=== PATIENT | female | born 1990 | race Two or more races ===

== ENCOUNTER 2017-03-30 10:02 | Emergency (ER) | payer SELFPAY ==
[~2017-03-30] VITALS: Ht 170.2 cm; Wt 63.5 kg
[2017-03-30] MEDS ORDERED: HYDROcodone/APAP 5/325MG 1 TAB TABLET PO ONE (11:45)
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
[2017-03-30 12:48] VITALS: BP 97/70
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
[2017-03-30] MEDS ORDERED: HYDR-2758 PO (13:21)
== END 2017-03-30 13:40 | disposition home or self-care (01) ==
LOC: ER 10:02
DX: M25.552 Pain in left hip (principal); Z88.0 Allergy status to penicillin; Z88.2 Allergy status to sulfonamides; Z88.6 Allergy status to analgesic agent; Z91.040 Latex allergy status; V49.59XA Passenger injured in collision with other motor vehicles in traffic accident, initial encounter; Y93.89 Activity, other specified; Y92.89 Other specified places as the place of occurrence of the external cause; Y99.8 Other external cause status
CPT/HCPCS: 73502; 81025; 99284

== ENCOUNTER 2017-11-07 13:30 | Emergency (ER) | payer SELFPAY ==
[2017-11-07] MEDS ORDERED: LIDOCAINE WITH 8.4% SOD BICARB 3 ML DISP.SYRIN. INJ (14:00)
== END 2017-11-07 13:41 | disposition home or self-care (01) ==
LOC: ER 13:41
DX: H66.93 Otitis media, unspecified, bilateral (principal); Z88.0 Allergy status to penicillin; Z88.2 Allergy status to sulfonamides; Z88.5 Allergy status to narcotic agent; Z91.040 Latex allergy status
CPT/HCPCS: 99283

== ENCOUNTER 2018-04-05 21:41 | Emergency (ER) | payer OTHER ==
[2018-04-05 22:34] LABS: URINE HCG POC HCG NEGATIVE (Negative)
[2018-04-05] MEDS: KETOROLAC 30 MG/ML INJ. IV (22:35)
== END 2018-04-05 22:56 | disposition home or self-care (01) ==
LOC: ER 22:56
DX: M54.41 Lumbago with sciatica, right side (principal); Z88.0 Allergy status to penicillin; Z88.2 Allergy status to sulfonamides; Z88.5 Allergy status to narcotic agent; Z91.040 Latex allergy status
CPT/HCPCS: 81025; 96374; 99284-25; J1885

== ENCOUNTER 2019-02-11 18:56 | Emergency (ER) | payer MEDICAID, OTHER ==
[~2019-02-11] VITALS: Ht 170.2 cm; Wt 69.9 kg
[~2019-02-11 18:56] MED LIST: CYCL5TAB PO; DOXY100T9 PO; HYDR-2761 PO; METH4TAB2 PO; PRED20TA PO
[2019-02-11 19:01] VITALS: BP 117/80
--- NOTE | 2019-02-11 19:21 | PHYS DOC ---
Past Medical History Past Medical History: No Pertinent History Additional Past Medical Histor: staph infection Past Surgical History: No Surgical History Alcohol Use: Occasionally Drug Use: None Adult General Chief Complaint Chief Complaint: KNEE INJURY [facility] HPI Patient is a 29 year old who presents after she fell down 3 steps at 10 PM last night and landed on her knee. She is 14 weeks . States that she is having 6 out of 10 pain on her lateral side of her knee. Denies any other complaints denies any new abdominal pain. She's felt the baby move. Has tried interventions of ice, Epsom salts, and lidocaine on the knee. Interventions have helped some but only minimally. Review of Systems Review of Systems Constitutional: Denies fever or chills [] Eyes: Denies change in visual acuity, redness, or eye pain [] HENT: Denies nasal congestion or sore throat [] Respiratory: Denies cough or shortness of breath [] Cardiovascular: No additional information not addressed in HPI [] GI: Denies abdominal pain, nausea, vomiting, bloody stools or diarrhea [] : Denies dysuria or hematuria [] Musculoskeletal: Denies back pain or joint pain with exception of L knee. Integument: Denies rash or skin lesions [] Neurologic: Denies headache, focal weakness or sensory changes [] Endocrine: Denies polyuria or polydipsia [] Complete systems were reviewed and found to be within normal limits, except as documented in this note. Allergies Allergies Allergies Coded Allergies Type Severity Reaction Last Updated Verified Penicillins Allergy Intermediate 07/05/14 Yes Sulfa (Sulfonamide Antibiotics) Allergy Intermediate Rash 07/05/14 Yes latex Allergy Intermediate Rash 07/05/14 Yes codeine Adverse Reaction Intermediate Severe vomiting. 07/05/14 Yes Physical Exam Physical Exam Constitutional: Well developed, well nourished, no acute distress, non-toxic appearance. [] HENT: Normocephalic, atraumatic, bilateral external ears normal, oropharynx moist, no oral exudates, nose normal. [] Eyes: PERRLA, EOMI, conjunctiva normal, no discharge. [] Neck: Normal range of motion, no tenderness, supple, no stridor. [] Cardiovascular:Heart rate regular rhythm, no murmur [] Lungs & Thorax: Bilateral breath sounds clear to auscultation [] Abdomen: Bowel sounds normal, soft, no tenderness, no masses, no pulsatile masses. [] Skin: Warm, dry, no erythema, no rash. [] Back: No tenderness, no CVA tenderness. [] Extremities: No tenderness with exception of L knee on lateral side, no cyanosis, no clubbing, ROM intact, no edema. [] Neurologic: Alert and oriented X 3, normal motor function, normal sensory function, no focal deficits noted. [] Psychologic: Affect normal, judgement normal, mood normal. [] Current Patient Data Vital Signs Vital Signs Date Time Temp Pulse Resp B/P (MAP) Pulse Ox O2 Delivery O2 Flow Rate FiO2 02/11/19 19:19 98.1 98.1 02/11/19 19:01 102 18 117/80 (92) 100 Room Air Lab Values Laboratory Tests Test 02/11/19 19:22 Urine Collection Type Unknown Urine Color Yellow Urine Clarity Cloudy Urine pH 6.0 Urine Specific [place] 1.025 Urine Protein Negative mg/dL (NEG-TRACE) Urine Glucose (UA) Negative mg/dL (NEG) Urine Ketones (Stick) Negative mg/dL (NEG) Urine Blood Negative (NEG) Urine Nitrite Negative (NEG) Urine Bilirubin Negative (NEG) Urine Urobilinogen Dipstick 0.2 mg/dL (0.2 mg/dL) Urine Leukocyte Esterase Small (NEG) Urine RBC 1-2 /HPF (0-2) Urine WBC 11-20 /HPF (0-4) Urine Squamous Epithelial Cells Many /LPF Urine Bacteria Many /HPF (0-FEW) EKG EKG [] Radiology/Procedures Radiology/Procedures []PATIENT: Slime WheatleyCOUNT: [id number]#: [id number] : 1990 LOCATION: ER AGE: 29 SEX: F EXAM STATUS: REG ER ORD. PHYSICIAN: EVERTON CHAVEZ APRN REASON: Injury, fall from stairs PROCEDURE: KNEE LEFT 3V EXAM: Left knee, 3 views. HISTORY: Fall. COMPARISON: None. FINDINGS: 3 views left knee are obtained. There is no fracture, dislocation or subluxation. There is no joint effusion. There is a benign bone island within the proximal tibial diaphysis. IMPRESSION: No acute osseous finding. Electronically signed by: Patricia Telles MD (02/11/2019 7:48 PM) [facility] Course & Med Decision Making Course & Med Decision Making Pertinent Labs and Imaging studies reviewed. (See chart for details) Will get x-ray, ua, and check heart tones. Xray is negative, UA shows UTI, and heart tones are appropriate (140's). Will d/c home. Dragon Disclaimer Dragon Disclaimer This electronic medical record was generated, in whole or in part, using a voice recognition dictation system. Departure Departure Impression: Primary Impression: Urinary tract infection affecting Additional Impression: Knee pain, acute Disposition: HOME, SELF-CARE Condition: STABLE Referrals: NO PCP (PCP) Patient Instructions: - Urinary Tract Infection Additional Instructions: Please follow up with your primary care doctor and ortho is knee does not improve. You have a UTI. Please take all of antibiotics. Come back to ER if symptoms worsen. Scripts Cephalexin (KEFLEX) 500 Mg Capsule 1 CAP PO BID for 7 Days, #14 CAP Prov: EVERTON CHAVEZ APRN 02/11/19 Problem Qualifiers Additional Impression: Knee pain, acute Laterality: left Qualified Codes: M25.562 - Pain in left knee EVERTON CHAVEZ APRN Feb 11, 2019 19:21
[2019-02-11 19:29] LABS: BILIRUBIN,URINE NEGATIVE (NEG); CLARITY,URINE CLOUDY; COLOR,URINE YELLOW; NITRITE,URINE NEGATIVE (NEG); PROTEIN,URINE NEGATIVE (NEG-TRACE); UROBILINOGEN,URINE 0.2 mg/dL (0.2 mg/dL)
[2019-02-11 19:36] LABS: BACTERIA,URINE MANY /HPF (0-FEW); SQUAMOUS EPITHELIAL CELL,UR MANY /LPF
--- NOTE | 2019-02-11 19:51 | RAD ---
EXAM: Left knee, 3 views. HISTORY: Fall. COMPARISON: None. FINDINGS: 3 views left knee are obtained. There is no fracture, dislocation or subluxation. There is no joint effusion. There is a benign bone island within the proximal tibial diaphysis. IMPRESSION: No acute osseous finding. Electronically signed by: Patricia Telles MD (02/11/2019 7:48 PM) [facility]
[2019-02-11] MEDS ORDERED: CEPH-264 PO (19:59)
== END 2019-02-11 20:50 | disposition home or self-care (01) ==
LOC: ER 18:56
DX: O99.89 Other specified diseases and conditions complicating pregnancy, childbirth and the puerperium (principal); M25.562 Pain in left knee; O23.42 Unspecified infection of urinary tract in pregnancy, second trimester; Z3A.14 14 weeks gestation of pregnancy; Z88.0 Allergy status to penicillin; Z88.2 Allergy status to sulfonamides; Z88.5 Allergy status to narcotic agent; Z91.040 Latex allergy status
CPT/HCPCS: 73562; 81001; 99285-25

== ENCOUNTER 2019-05-04 11:20 | Observation (INO) | payer MEDICAID ==
[~2019-05-04 11:20] MED LIST changes: +CEPH-264 PO
[2019-05-04 12:10] LABS: BILIRUBIN,URINE NEGATIVE (NEG); CLARITY,URINE CLEAR; COLOR,URINE YELLOW; NITRITE,URINE NEGATIVE (NEG); PROTEIN,URINE NEGATIVE (NEG-TRACE); UROBILINOGEN,URINE 0.2 mg/dL (0.2 mg/dL)
[2019-05-04 12:12] LABS: BACTERIA,URINE FEW /HPF (0-FEW); BARBITURATES NEG (NEG); BENZODIAZEPINES NEG (NEG); CANNABINOIDS NEG (NEG); COCAINE NEG (NEG); METHADONE NEG (NEG); OPIATES NEG (NEG); PHENCYCLIDINE NEG (NEG); RBC,URINE 0 /HPF (0-2); SQUAMOUS EPITHELIAL CELL,UR MANY /LPF; WBC,URINE OCC /HPF (0-4)
[2019-05-04 12:15] LABS: AMPHETAMINE/METHAMPHETAMINE NEG (NEG)
== END 2019-05-04 13:00 | disposition home or self-care (01) ==
LOC: 3 SO LND 11:20
PROVIDERS: ADMIT Obstetrics & Gynecology; ATTEND Obstetrics & Gynecology
DX: O26.892 Other specified pregnancy related conditions, second trimester (principal); R19.7 Diarrhea, unspecified; R10.30 Lower abdominal pain, unspecified; Z3A.26 26 weeks gestation of pregnancy
CPT/HCPCS: 80307; 81001; G0378; G0379

== ENCOUNTER 2021-02-11 09:30 | Inpatient (IN) | payer OTHER, MEDICAID ==
[~2021-02-11] VITALS: Ht 170.2 cm; Wt 52.0 kg
[~2021-02-11 09:30] MED LIST changes: +DOXY-96 PO; -DOXY100T9 PO
[2021-02-11 10:04] LABS: BILIRUBIN,URINE NEGATIVE (NEG); CLARITY,URINE CLEAR; NITRITE,URINE NEGATIVE (NEG); PH,URINE 6.5 (<5.0-8.0); PROTEIN,URINE NEGATIVE (NEG-TRACE); UROBILINOGEN,URINE 0.2 mg/dL (0.2 mg/dL)
[2021-02-11 10:10] LABS: COLOR,URINE YELLOW
[2021-02-11 10:11] LABS: BASO # 0.1 x10^3/uL (0.0-0.2); BASO % 1 % (0-3); EOS # 0.3 x10^3/uL (0.0-0.7); EOS % 2 % (0-3); HEMATOCRIT 35.1 % (36.0-47.0); HEMOGLOBIN 11.5 g/dL (12.0-15.5); LYMPH # 1.5 x10^3/uL (1.0-4.8); LYMPH % 11 % (24-48); MEAN CORPUSCULAR HEMOGLOBIN 29 pg (25-35); MEAN CORPUSCULAR HGB CONC 33 g/dL (31-37); MEAN CORPUSCULAR VOLUME 87 fL (79-100); MONO # 0.6 x10^3/uL (0.0-1.1); MONO % 5 % (0-9); NEUT # 10.9 x10^3/uL (1.8-7.7); NEUT % 81 % (31-73); PLATELET COUNT 493 x10^3/uL (140-400); RED BLOOD COUNT 4.04 x10^6/uL (3.50-5.40); RED CELL DISTRIBUTION WIDTH 14.5 % (11.5-14.5); WHITE BLOOD COUNT 13.4 x10^3/uL (4.0-11.0)
[2021-02-11 10:11] LABS: BACTERIA,URINE FEW /HPF (0-FEW); RBC,URINE OCC /HPF (0-2)
[2021-02-11 10:17] LABS: CALCIUM 8.8 mg/dL (8.5-10.1); CREATININE 0.8 mg/dL (0.6-1.0); GFR 82.6; POTASSIUM 3.5 mmol/L (3.5-5.1)
[2021-02-11 10:22] LABS: ALBUMIN/GLOBULIN RATIO 0.6 (1.0-1.7); MAGNESIUM 1.7 mg/dL (1.8-2.4); TOTAL BILIRUBIN 0.3 mg/dL (0.2-1.0); TOTAL PROTEIN 8.1 g/dL (6.4-8.2)
[2021-02-11 10:22] LABS: BARBITURATES NEG (NEG); BENZODIAZEPINES NEG (NEG); CANNABINOIDS NEG (NEG); COCAINE POS (NEG); METHADONE NEG (NEG); OPIATES NEG (NEG); PHENCYCLIDINE NEG (NEG)
[2021-02-11 10:23] LABS: AMPHETAMINE/METHAMPHETAMINE NEG (NEG)
[2021-02-11] MEDS ORDERED: IV NORMAL SALINE 1000ML BAG 1,000 ML IV ONE (10:30)
[2021-02-11] MEDS ORDERED: fentaNYL PF VIAL 100 MCG/2 ML VIAL IVP ONE (10:45)
[2021-02-11] MEDS ORDERED: KETOROLAC 15 MG/ML VIAL. IVP ONE (10:45)
[2021-02-11] MEDS ORDERED: MAGNESIUM SULFATE 1GM 100 ML IV ONE (11:00)
[2021-02-11] MEDS ORDERED: IOHEXOL 240 MG/ML 50ML VIAL. PO ONE (11:30)
[2021-02-11] MEDS ORDERED: CONTRAST GIVEN. MC PRN (11:30)
[2021-02-11] MEDS ORDERED: IOHEXOL 300 MG/ML 100ML VIAL. IV ONE (12:00)
--- NOTE | 2021-02-11 12:40 | RAD ---
CT abdomen pelvis with contrast dated 02/11/2021. No comparison available. CLINICAL INDICATION: Abdominal pain and diarrhea. TECHNIQUE: Contiguous axial imaging the M pelvis performed after the administration of 75 cc Omnipaque 300. One or more of the following individualized dose reduction techniques were utilized for this examinat ion: 1. Automated exposure control 2. Adjustment of the mA and/or kV according to patient size 3. Use of iterative reconstruction technique FINDINGS: Limited images of the lung bases are clear. Heart size within normal limits. No pleural or pericardia l effusion. Liver, spleen, pancreas, adrenal glands unremarkable. The gallbladder is relatively collapsed and not well evaluated. There is a 2 mm calcific stone at the upper pole right kidney. No calcific stone on the left. No ureteral stone or hydronephrosis. There is mild circumferential wall thickening of the ascending colon and transverse colon with mild p ericolonic inflammatory stranding. The appendix is normal in caliber. The small bowel is unremarkable . There are a few borderline enlarged lymph nodes in the ileocolic region. No retroperitoneal adenopa thy. The abdominal aorta is normal in caliber. Images of pelvis show mildly distended urinary bladder. Uterus and adnexa unremarkable. Trace amount of free pelvic fluid. No pelvic adenopathy. Bone windows show no acute finding. IMPRESSION: 1. Mild diffuse colonic wall thickening, nonspecific. Consider infectious or inflammatory colitis. Is chemic causes considered unlikely. 2. Borderline enlarged ileocolic lymph nodes, likely reactive. The appendix is normal in caliber. 3. Right-sided nephrolithiasis, nonobstructive. Electronically signed by: Chinedu Rebolledo MD (02/11/2021 12:38 PM) [id number]
--- NOTE | 2021-02-11 12:47 | PHYS DOC ---
Past Medical History Past Medical History: No Pertinent History, Other Additional Past Medical Histor: staph infection Past Surgical History: No Surgical History Smoking Status: Current Every Day Smoker Alcohol Use: Occasionally Drug Use: None General Adult EDM: Chief Complaint: ABDOMINAL PAIN HPI: HPI: 31-year-old female past medical history tobacco use presents the ED with her biological mother (patient consents to his/her/their knowledge and involvement in pts' medical care), complains of intermittent episodes of diffuse abdominal pain with loose watery diarrhea (occasional bright red blood) since September 2020, s lost 3 dress sizes. Patient reports her mother has history of Crohn's and she is concerned for this. Was seen December 15 at and was prescribed Bentyl -no CT imaging at that time. No associated emesis. Review of Systems: Review of Systems: Constitutional: Denies fever or chills. [] Eyes: Denies change in visual acuity. [] HENT: Denies nasal congestion or sore throat. [] Respiratory: Denies cough or shortness of breath. [] Cardiovascular: Denies chest pain or edema. [] GI: Denies nausea or vomiting : Denies dysuria or vaginal bleeding Musculoskeletal: Denies back pain or joint pain. [] Integument: Denies rash or diaphoresis Neurologic: Denies headache, focal weakness or sensory changes. [] Endocrine: Denies polyuria or polydipsia. [] Lymphatic: Denies swollen glands. [] Psychiatric: Denies depression or anxiety. [] Heart Score: C/O Chest Pain: No Risk Factors: Risk Factors: DM, Current or recent (<one month) smoker, HTN, HLP, family history of CAD, obesity. Risk Scores: Score 0 - 3: 2.5% MACE over next 6 weeks - Discharge Home Score 4 - 6: 20.3% MACE over next 6 weeks - Admit for Clinical Observation Score 7 - 10: 72.7% MACE over next 6 weeks - Early Invasive Strategies Current Medications: Current Medications Medications (Trade) Dose Ordered Sig/[place] Start Time Stop Time Status Last Admin Dose Admin Fentanyl Citrate (Fentanyl 2ml Vial) 75 mcg 1X ONCE 02/11/21 10:45 02/11/21 10:46 DC 02/11/21 11:07 75 MCG Info (CONTRAST GIVEN -- Rx MONITORING) 1 each PRN DAILY PRN 02/11/21 11:30 02/13/21 11:29 Iohexol (Omnipaque 240 Mg/ml) 50 ml 1X ONCE 02/11/21 11:30 02/11/21 11:31 DC 02/11/21 11:30 50 ML Iohexol (Omnipaque 300 Mg/ml) 75 ml 1X ONCE 02/11/21 12:00 02/11/21 12:01 DC 02/11/21 12:23 75 ML Ketorolac Tromethamine (Toradol 15mg Vial) 15 mg 1X ONCE 02/11/21 10:45 02/11/21 10:46 DC 02/11/21 11:08 15 MG Magnesium Sulfate/ Dextrose 100 ml @ 100 mls/hr 1X ONCE 02/11/21 11:00 02/11/21 11:59 DC 02/11/21 11:08 100 MLS/HR Sodium Chloride 1,000 ml @ 1,000 mls/hr 1X ONCE 02/11/21 10:30 02/11/21 11:29 DC 02/11/21 11:08 1,000 MLS/HR Allergies: Allergies: Allergies Coded Allergies Type Severity Reaction Last Updated Verified Penicillins Allergy Intermediate 07/05/14 Yes Sulfa (Sulfonamide Antibiotics) Allergy Intermediate Rash 07/05/14 Yes latex Allergy Intermediate Rash 07/05/14 Yes codeine Adverse Reaction Intermediate Severe vomiting. 07/05/14 Yes Physical Exam: PE: Constitutional: Well developed, well nourished, no acute distress, non-toxic appearance. HENT: Normocephalic, atraumatic, Eyes: EOMI, conjunctiva normal, no discharge. Neck: Normal range of motion, supple, Cardiovascular: S1/2 present, regular rhythm Lungs & Thorax: Speaking in full sentences, bilateral equal chest rise, no tachypnea or increased work of breathing Abdomen: soft, no tenderness, Skin: Warm, dry, no erythema, no rash. [] Back: No tenderness, no CVA tenderness. [] Extremities: No tenderness, no cyanosis, no lower extremity edema Neurologic: Alert and oriented X 3, normal motor function, normal sensory function, no focal deficits noted. [] Psychologic: Affect normal, judgement normal, mood normal. [] Current Patient Data: Labs: Laboratory Tests Test 02/11/21 09:32 02/11/21 09:41 02/11/21 09:55 Urine Collection Type Unknown Urine Color Yellow Urine Clarity Clear Urine pH 6.5 (<5.0-8.0) Urine Specific [place] >=1.030 (1.000-1.030) Urine Protein Negative mg/dL (NEG-TRACE) Urine Glucose (UA) Negative mg/dL (NEG) Urine Ketones (Stick) Negative mg/dL (NEG) Urine Blood Negative (NEG) Urine Nitrite Negative (NEG) Urine Bilirubin Negative (NEG) Urine Urobilinogen Dipstick 0.2 mg/dL (0.2 mg/dL) Urine Leukocyte Esterase Negative (NEG) Urine RBC Occ /HPF (0-2) Urine WBC 1-4 /HPF (0-4) Urine Squamous Epithelial Cells Many /LPF Urine Bacteria Few /HPF (0-FEW) Urine Mucus Marked /LPF Urine Opiates Screen Neg (NEG) Urine Methadone Screen Neg (NEG) Urine Barbiturates Neg (NEG) Urine Phencyclidine Screen Neg (NEG) Urine Amphetamine/Methamphetamine Neg (NEG) Urine Benzodiazepines Screen Neg (NEG) Urine Cocaine Screen Pos (NEG) Urine Cannabinoids Screen Neg (NEG) Urine Ethyl Alcohol Neg (NEG) POC Urine HCG, Qualitative Hcg negative (Negative) White Blood Count 13.4 x10^3/uL (4.0-11.0) H Red Blood Count 4.04 x10^6/uL (3.50-5.40) Hemoglobin 11.5 g/dL (12.0-15.5) L Hematocrit 35.1 % (36.0-47.0) L Mean Corpuscular Volume 87 fL (79-100) Mean Corpuscular Hemoglobin 29 pg (25-35) Mean Corpuscular Hemoglobin Concent 33 g/dL (31-37) Red Cell Distribution Width 14.5 % (11.5-14.5) Platelet Count 493 x10^3/uL (140-400) H Neutrophils (%) (Auto) 81 % (31-73) H Lymphocytes (%) (Auto) 11 % (24-48) L Monocytes (%) (Auto) 5 % (0-9) Eosinophils (%) (Auto) 2 % (0-3) Basophils (%) (Auto) 1 % (0-3) Neutrophils # (Auto) 10.9 x10^3/uL (1.8-7.7) H Lymphocytes # (Auto) 1.5 x10^3/uL (1.0-4.8) Monocytes # (Auto) 0.6 x10^3/uL (0.0-1.1) Eosinophils # (Auto) 0.3 x10^3/uL (0.0-0.7) Basophils # (Auto) 0.1 x10^3/uL (0.0-0.2) Sodium Level 141 mmol/L (136-145) Potassium Level 3.5 mmol/L (3.5-5.1) Chloride Level 102 mmol/L (98-107) Carbon Dioxide Level 28 mmol/L (21-32) Anion Gap 11 (6-14) Blood Urea Nitrogen 7 mg/dL (7-20) Creatinine 0.8 mg/dL (0.6-1.0) Estimated GFR (Cockcroft-Gault) 82.6 BUN/Creatinine Ratio 9 (6-20) Glucose Level 122 mg/dL (70-99) H Calcium Level 8.8 mg/dL (8.5-10.1) Magnesium Level 1.7 mg/dL (1.8-2.4) L Total Bilirubin 0.3 mg/dL (0.2-1.0) Aspartate Amino Transferase (AST) 21 U/L (15-37) Alanine Aminotransferase (ALT) 26 U/L (14-59) Alkaline Phosphatase 117 U/L (46-116) H Total Protein 8.1 g/dL (6.4-8.2) Albumin 3.0 g/dL (3.4-5.0) L Albumin/Globulin Ratio 0.6 (1.0-1.7) L Lipase 75 U/L (73-393) Laboratory Tests 02/11/21 09:55 Laboratory Tests 02/11/21 09:55 Vital Signs: Vital Signs Date Time Temp Pulse Resp B/P (MAP) Pulse Ox O2 Delivery O2 Flow Rate FiO2 02/11/21 11:41 76 16 98/68 (78) 98 Room Air 02/11/21 09:30 98.8 98.8 EKG: EKG: [] Radiology/Procedures: Radiology/Procedures: IMAGING REPORT Signed PATIENT: JOSE ANTONIO KELLY ACCOUNT: [id number] : 1990 LOCATION: ER AGE: 31 SEX: F EXAM STATUS: REG ER ORD. PHYSICIAN: NATALIE PORTILLO DO REASON: abd pain, diarrhea, fh chrons PROCEDURE: CT ABD PELV W/ORAL&IV CONTRAST CT abdomen pelvis with contrast dated 02/11/2021. No comparison available. CLINICAL INDICATION: Abdominal pain and diarrhea. TECHNIQUE: Contiguous axial imaging the M pelvis performed after the administration of 75 cc Omnipaque 300. One or more of the following individualized dose reduction techniques were utilized for this examination: 1. Automated exposure control 2. Adjustment of the mA and/or kV according to patient size 3. Use of iterative reconstruction technique FINDINGS: Limited images of the lung bases are clear. Heart size within normal limits. No pleural or pericardial effusion. Liver, spleen, pancreas, adrenal glands unremarkable. The gallbladder is relatively collapsed and not well evaluated. There is a 2 mm calcific stone at the upper pole right kidney. No calcific stone on the left. No ureteral stone or hydronephrosis. There is mild circumferential wall thickening of the ascending colon and transverse colon with mild pericolonic inflammatory stranding. The appendix is normal in caliber. The small bowel is unremarkable. There are a few borderline enlarged lymph nodes in the ileocolic region. No retroperitoneal adenopathy. The abdominal aorta is normal in caliber. Images of pelvis show mildly distended urinary bladder. Uterus and adnexa unremarkable. Trace amount of free pelvic fluid. No pelvic adenopathy. Bone windows show no acute finding. IMPRESSION: 1. Mild diffuse colonic wall thickening, nonspecific. Consider infectious or inflammatory colitis. Ischemic causes considered unlikely. 2. Borderline enlarged ileocolic lymph nodes, likely reactive. The appendix is normal in caliber. 3. Right-sided nephrolithiasis, nonobstructive. Electronically signed by: Chinedu Rebolledo MD (02/11/2021 12:38 PM) [id number] DICTATED and SIGNED BY: CHINEDU REBOLLEDO MD DATE: 02/11/21 [id number] 0 Course & Med Decision Making: Course & Med Decision Making Pertinent Labs and Imaging studies reviewed. (See chart for details) Concern for infectious vs inflammatory diarrhea, possibly new-onset IBD. I offered inpatient vs outpt management. UDS positive for cocaine. Pt very tearful and in pain. Will admit for abx, bowel rest, IVFs and analgesia. GI consultation placed. Patient stable time admission and agrees with this plan. I have spoken with the patient and/or caregivers. I have explained the patient's condition, diagnosis and treatment plan based on the information avail able to me at this time. I have answered the patient's and/or caregivers questions and answered any concerns. The patient and/or caregivers have as good an understanding of the patient's diagnosis, condition and treatment plan as can be expected at this point. The patient has been stabilized within the capability of the emergency department. The patient will be transported for further care and management or will be moved to an observation or inpatient service. I have communicated with the staff or medical practitioner taking over this patient's care. Eliel Disclaimer: Eliel Disclaimer: This electronic medical record was generated, in whole or in part, using a voice recognition dictation system. Departure Departure Impression: Primary Impression: Infectious colitis Additional Impressions: Hypomagnesemia Cocaine abuse Disposition: ADMITTED INPATIENT Admitting Physician: DANNY (Dr. Viera) Condition: STABLE Referrals: NON,STAFF (PCP) NATALIE PORTILLO DO Feb 11, 2021 12:47
--- NOTE | 2021-02-11 13:30 | PDOC1 ---
History and Physical Date of Admission Date of Admission DATE: 02/11/21 TIME: 13:27 Identification/Chief Complaint Chief Complaint ABDOMINAL PAIN, POOR APPETITE, WEIGHT LOSS, DAILY LOOSE STOOLS X4 X 6 MONTHS History of Present Illness History of Present Illness 31-year-old female presented the ED with her biological mother (patient consents to his/her/their knowledge and involvement in pts' medical care), complains of intermittent episodes of diffuse abdominal pain with 4 daily loose watery diarrhea since September 2020. reports her mother has history of Crohn's seen December 15 at and was prescribed Bentyl and referred for colonoscopy, but this has been rescheduled multiple times CT today concerning for IBD vs infectious etiology, stool cultured, pt npo, GI consulted UDS pos cocaine, pt denies recent use but states boyfriend used to sell cocaine, she admits to last use one year ago PLAN ADMIT NPO / IV FLUIDS /GI CONSULT /Stool enteric pathogens pain control ESR / IBD PANEL Past Medical History Past Medical History Past Medical History Past Medical History: No Pertinent History, Other Additional Past Medical Histor: staph infection Past Surgical History: No Surgical History Smoking Status: Current Every Day Smoker Alcohol Use: Occasionally Drug Use: None mother has history of Crohn's FHX COPD Psych: Addictions Infectious disease: No pertinent hx Renal/: No pertinent hx Endocrine: No pertinent hx Dermatology: No pertinent hx Family History Family History IBD Social History Smoke: <1 pack per day ALCOHOL: occassional Drugs: Cocaine Current Medications Current Medications Current Medications Sodium Chloride 1,000 ml @ 1,000 mls/hr 1X ONCE IV Last administered on 02/11/21at 11:08; Start 02/11/21 at 10:30; Stop 02/11/21 at 11:29; Status DC Magnesium Sulfate/ Dextrose 100 ml @ 100 mls/hr 1X ONCE IV Last administered on 02/11/21at 11:08; Start 02/11/21 at 11:00; Stop 02/11/21 at 11:59; Status DC Ketorolac Tromethamine (Toradol 15mg Vial) 15 mg 1X ONCE IVP Last administered on 02/11/21at 11:08; Start 02/11/21 at 10:45; Stop 02/11/21 at 10:46; Status DC Fentanyl Citrate (Fentanyl 2ml Vial) 75 mcg 1X ONCE IVP Last administered on 02/11/21at 11:07; Start 02/11/21 at 10:45; Stop 02/11/21 at 10:46; Status DC Iohexol (Omnipaque 300 Mg/ml) 75 ml 1X ONCE IV Last administered on 02/11/21at 12:23; Start 02/11/21 at 12:00; Stop 02/11/21 at 12:01; Status DC Iohexol (Omnipaque 240 Mg/ml) 50 ml 1X ONCE PO Last administered on 02/11/21at 11:30; Start 02/11/21 at 11:30; Stop 02/11/21 at 11:31; Status DC Info (CONTRAST GIVEN -- Rx MONITORING) 1 each PRN DAILY PRN MC SEE COMMENTS; Start 02/11/21 at 11:30; Stop 02/13/21 at 11:29 Hydromorphone HCl (Dilaudid) 0.5 mg 1X ONCE IVP ; Start 02/11/21 at 13:30; Stop 02/11/21 at 13:31; Status UNV Ciprofloxacin/ Dextrose 200 ml @ 200 mls/hr 1X ONCE IV ; Start 02/11/21 at 13:30; Stop 02/11/21 at 14:29; Status UNV Metronidazole 100 ml @ 100 mls/hr 1X ONCE IV ; Start 02/11/21 at 13:30; Stop 02/11/21 at 14:29; Status UNV Active Scripts Active Keflex (Cephalexin) 500 Mg Capsule 1 Cap PO BID 7 Days Cyclobenzaprine Hcl 5 Mg Tablet 1 Tab PO QHS Medrol (Methylprednisolone) 4 Mg Tab.ds.pk 1 Pkg PO UD Doxycycline Hyclate 100 Mg Tablet.dr 1 Tab PO BID Prednisone 20 Mg Tablet 2 Tab PO DAILY 5 Days Hydrocodone-Apap 5-325 (Hydrocodone Bit/Acetaminophen) 1 Each Tablet 1 Tab PO PRN Q6HRS PRN Be careful as this medication may cause you to be drowsy or tired. Do not drive on this medication. Allergies Allergies: Coded Allergies: Penicillins (Verified Allergy, Intermediate, 07/05/14) Sulfa (Sulfonamide Antibiotics) (Verified Allergy, Intermediate, Rash, 07/05/14) latex (Verified Allergy, Intermediate, Rash, 07/05/14) codeine (Verified Adverse Reaction, Intermediate, Severe vomiting. , 07/05/14) ROS Review of System 14 PT ROS OTHERWISE NEG General: YES: Fatigue, Appetite; No: Chills, Night Sweats, Malaise, Other PSYCHOLOGICAL ROS: No: Anxiety, Behavioral Disorder, Concentration difficultie, Decreased libido, Depression, Disorientation, Hallucinations, Hostility, Irritablity, Memory difficulties, Mood Swings, Obsessive thoughts, Physical abuse, Sexual abuse, Sleep disturbances, Suicidal ideation, Other Eyes: No Blurry vision, No Decreased vision, No Double vision, No Dry eyes, No Excessive tearing, No Eye Pain, No Itchy Eyes, No Loss of vision, No Photophobia, No Scotomata, No Uses contacts, No Uses glasses, No Other HEENT: No: Heacaches, Visual Changes, Hearing change, Nasal congestion, Nasal discharge, Oral lesions, Sinus pain, Sore Throat, Epistaxis, Sneezing, Snoring, Tinnitus, Vertigo, Vocal changes, Other ALLERGY AND IMMUNOLOGY: YES: Hives; No: Insect Bite Sensitivity, Itchy/Watery Eyes, Nasal Congestion, Post Nasal Drip, Seasonal Allergies, Other Hematological and Lymphatic: No: Bleeding Problems, Blood Clots, Blood Transfusions, Brusing, Night Sweats, Pallor, Swollen Lymph Nodes, Other ENDOCRINE: No: Breast Changes, Galactorrhea, Hair Pattern Changes, Hot Flashes, Malaise/lethargy, Mood Swings, Palpitations, Polydipsia/polyuria, Skin Changes, Temperature Intolerance, Unexpected Weight Changes, Other Breast: No New/Changing Breast Lumps, No Nipple changes, No Nipple discharge, No Other Respiratory: No: Cough, Hemoptysis, Orthopnea, Pleuritic Pain, Shortness of breath, SOB with excertion, Sputum Changes, Stridor, Tachypnea, Wheezing, Other Cardiovascular: No Chest Pain, No Palpitations, No Orthopnea, No Paroxysmal Noc. Dyspnea, No Edema, No Lt Headedness, No Other Gastrointestinal: Yes Abdominal Pain, Yes Diarrhea; No Nausea, No Vomiting, No Constipation, No Melena, No Hematochezia, No Other Genitourinary: No Dysuria, No Frequency, No Incontinence, No Hematuria, No Retention, No Discharge, No Urgency, No Pain, No Flank Pain, No Other, No , No , No , No , No , No , No Musculoskeletal: No Gait Disturbance, No Joint Pain, No Joint Stiffness, No Joint Swelling, No Muscle Pain, No Muscular Weakness, No Pain In:, No Swelling In:, No Other Neurological: No Behavorial Changes, No Bowel/Bladder ControlChng, No Confusion, No Dizziness, No Gait Disturbance, No Headaches, No Impaired Coord/balance, No Memory Loss, No Numbness/Tingling, No Seizures, No Speech Problems, No Tremors, No Visual Changes, No Weakness, No Other Skin: No Dry Skin, No Eczema, No Hair Changes, No Lumps, No Mole Changes, No Mottling, No Nail Changes, No Pruritus, No Rash, No Skin Lesion Changes, No Other, No Acne Physical Exam General: Alert, Oriented X3, Cooperative, No acute distress, mild distress HEENT: Atraumatic, PERRLA, EOMI, Mucous membr. moist/pink Lungs: Normal air movement Heart: S1S2, RRR, no thrills, no rubs, no gallops, no murmurs, no jug vein distention Breasts: Not examined Abdomen: Normal bowel sounds, Soft, No hepatosplenomegaly, No masses, Other (MILD TENDERNESS NO REBOUND) Rectal Exam: not examined PELVIC: Examination not indicated Extremities: No clubbing, No cyanosis, No edema Skin: No significant lesion Neuro: Normal speech, Strength at 5/5 X4 ext, Cranial nerves 3-12 NL Psych/Mental Status: Mental status NL, Mood NL Vitals Vitals Vital Signs Date Time Temp Pulse Resp B/P (MAP) Pulse Ox O2 Delivery O2 Flow Rate FiO2 02/11/21 11:41 76 16 98/68 (78) 98 Room Air 02/11/21 09:30 98.8 98.8 Labs Labs Laboratory Tests Test 02/11/21 09:32 02/11/21 09:41 02/11/21 09:55 Urine Collection Type Unknown Urine Color Yellow Urine Clarity Clear Urine pH 6.5 (<5.0-8.0) Urine Specific [place] >=1.030 (1.000-1.030) Urine Protein Negative mg/dL (NEG-TRACE) Urine Glucose (UA) Negative mg/dL (NEG) Urine Ketones (Stick) Negative mg/dL (NEG) Urine Blood Negative (NEG) Urine Nitrite Negative (NEG) Urine Bilirubin Negative (NEG) Urine Urobilinogen Dipstick 0.2 mg/dL (0.2 mg/dL) Urine Leukocyte Esterase Negative (NEG) Urine RBC Occ /HPF (0-2) Urine WBC 1-4 /HPF (0-4) Urine Squamous Epithelial Cells Many /LPF Urine Bacteria Few /HPF (0-FEW) Urine Mucus Marked /LPF Urine Opiates Screen Neg (NEG) Urine Methadone Screen Neg (NEG) Urine Barbiturates Neg (NEG) Urine Phencyclidine Screen Neg (NEG) Urine Amphetamine/Methamphetamine Neg (NEG) Urine Benzodiazepines Screen Neg (NEG) Urine Cocaine Screen Pos (NEG) Urine Cannabinoids Screen Neg (NEG) Urine Ethyl Alcohol Neg (NEG) Bedside Urine HCG, Qualitative Hcg negative (Negative) White Blood Count 13.4 x10^3/uL (4.0-11.0) Red Blood Count 4.04 x10^6/uL (3.50-5.40) Hemoglobin 11.5 g/dL (12.0-15.5) Hematocrit 35.1 % (36.0-47.0) Mean Corpuscular Volume 87 fL (79-100) Mean Corpuscular Hemoglobin 29 pg (25-35) Mean Corpuscular Hemoglobin Concent 33 g/dL (31-37) Red Cell Distribution Width 14.5 % (11.5-14.5) Platelet Count 493 x10^3/uL (140-400) Neutrophils (%) (Auto) 81 % (31-73) Lymphocytes (%) (Auto) 11 % (24-48) Monocytes (%) (Auto) 5 % (0-9) Eosinophils (%) (Auto) 2 % (0-3) Basophils (%) (Auto) 1 % (0-3) Neutrophils # (Auto) 10.9 x10^3/uL (1.8-7.7) Lymphocytes # (Auto) 1.5 x10^3/uL (1.0-4.8) Monocytes # (Auto) 0.6 x10^3/uL (0.0-1.1) Eosinophils # (Auto) 0.3 x10^3/uL (0.0-0.7) Basophils # (Auto) 0.1 x10^3/uL (0.0-0.2) Sodium Level 141 mmol/L (136-145) Potassium Level 3.5 mmol/L (3.5-5.1) Chloride Level 102 mmol/L (98-107) Carbon Dioxide Level 28 mmol/L (21-32) Anion Gap 11 (6-14) Blood Urea Nitrogen 7 mg/dL (7-20) Creatinine 0.8 mg/dL (0.6-1.0) Estimated GFR (Cockcroft-Gault) 82.6 BUN/Creatinine Ratio 9 (6-20) Glucose Level 122 mg/dL (70-99) Calcium Level 8.8 mg/dL (8.5-10.1) Magnesium Level 1.7 mg/dL (1.8-2.4) Total Bilirubin 0.3 mg/dL (0.2-1.0) Aspartate Amino Transf (AST/SGOT) 21 U/L (15-37) Alanine Aminotransferase (ALT/SGPT) 26 U/L (14-59) Alkaline Phosphatase 117 U/L (46-116) Total Protein 8.1 g/dL (6.4-8.2) Albumin 3.0 g/dL (3.4-5.0) Albumin/Globulin Ratio 0.6 (1.0-1.7) Lipase 75 U/L (73-393) Laboratory Tests Test 02/11/21 09:32 02/11/21 09:41 02/11/21 09:55 Urine Collection Type Unknown Urine Color Yellow Urine Clarity Clear Urine pH 6.5 (<5.0-8.0) Urine Specific [place] >=1.030 (1.000-1.030) Urine Protein Negative mg/dL (NEG-TRACE) Urine Glucose (UA) Negative mg/dL (NEG) Urine Ketones (Stick) Negative mg/dL (NEG) Urine Blood Negative (NEG) Urine Nitrite Negative (NEG) Urine Bilirubin Negative (NEG) Urine Urobilinogen Dipstick 0.2 mg/dL (0.2 mg/dL) Urine Leukocyte Esterase Negative (NEG) Urine RBC Occ /HPF (0-2) Urine WBC 1-4 /HPF (0-4) Urine Squamous Epithelial Cells Many /LPF Urine Bacteria Few /HPF (0-FEW) Urine Mucus Marked /LPF Urine Opiates Screen Neg (NEG) Urine Methadone Screen Neg (NEG) Urine Barbiturates Neg (NEG) Urine Phencyclidine Screen Neg (NEG) Urine Amphetamine/Methamphetamine Neg (NEG) Urine Benzodiazepines Screen Neg (NEG) Urine Cocaine Screen Pos (NEG) Urine Cannabinoids Screen Neg (NEG) Urine Ethyl Alcohol Neg (NEG) Bedside Urine HCG, Qualitative Hcg negative (Negative) White Blood Count 13.4 x10^3/uL (4.0-11.0) Red Blood Count 4.04 x10^6/uL (3.50-5.40) Hemoglobin 11.5 g/dL (12.0-15.5) Hematocrit 35.1 % (36.0-47.0) Mean Corpuscular Volume 87 fL (79-100) Mean Corpuscular Hemoglobin 29 pg (25-35) Mean Corpuscular Hemoglobin Concent 33 g/dL (31-37) Red Cell Distribution Width 14.5 % (11.5-14.5) Platelet Count 493 x10^3/uL (140-400) Neutrophils (%) (Auto) 81 % (31-73) Lymphocytes (%) (Auto) 11 % (24-48) Monocytes (%) (Auto) 5 % (0-9) Eosinophils (%) (Auto) 2 % (0-3) Basophils (%) (Auto) 1 % (0-3) Neutrophils # (Auto) 10.9 x10^3/uL (1.8-7.7) Lymphocytes # (Auto) 1.5 x10^3/uL (1.0-4.8) Monocytes # (Auto) 0.6 x10^3/uL (0.0-1.1) Eosinophils # (Auto) 0.3 x10^3/uL (0.0-0.7) Basophils # (Auto) 0.1 x10^3/uL (0.0-0.2) Sodium Level 141 mmol/L (136-145) Potassium Level 3.5 mmol/L (3.5-5.1) Chloride Level 102 mmol/L (98-107) Carbon Dioxide Level 28 mmol/L (21-32) Anion Gap 11 (6-14) Blood Urea Nitrogen 7 mg/dL (7-20) Creatinine 0.8 mg/dL (0.6-1.0) Estimated GFR (Cockcroft-Gault) 82.6 BUN/Creatinine Ratio 9 (6-20) Glucose Level 122 mg/dL (70-99) Calcium Level 8.8 mg/dL (8.5-10.1) Magnesium Level 1.7 mg/dL (1.8-2.4) Total Bilirubin 0.3 mg/dL (0.2-1.0) Aspartate Amino Transf (AST/SGOT) 21 U/L (15-37) Alanine Aminotransferase (ALT/SGPT) 26 U/L (14-59) Alkaline Phosphatase 117 U/L (46-116) Total Protein 8.1 g/dL (6.4-8.2) Albumin 3.0 g/dL (3.4-5.0) Albumin/Globulin Ratio 0.6 (1.0-1.7) Lipase 75 U/L (73-393) Images Images No comparison available. CLINICAL INDICATION: Abdominal pain and diarrhea. TECHNIQUE: Contiguous axial imaging the M pelvis performed after the administration of 75 cc Omnipaque 300. One or more of the following individualized dose reduction techniques were utilized for this examination: 1. Automated exposure control 2. Adjustment of the mA and/or kV according to patient size 3. Use of iterative reconstruction technique FINDINGS: Limited images of the lung bases are clear. Heart size within normal limits. No pleural or pericardial effusion. Liver, spleen, pancreas, adrenal glands unremarkable. The gallbladder is relatively collapsed and not well evaluated. There is a 2 mm calcific stone at the upper pole right kidney. No calcific stone on the left. No ureteral stone or hydronephrosis. There is mild circumferential wall thickening of the ascending colon and transverse colon with mild pericolonic inflammatory stranding. The appendix is normal in caliber. The small bowel is unremarkable. There are a few borderline enlarged lymph nodes in the ileocolic region. No retroperitoneal adenopathy. The abdominal aorta is normal in caliber. Images of pelvis show mildly distended urinary bladder. Uterus and adnexa unremarkable. Trace amount of free pelvic fluid. No pelvic adenopathy. Bone windows show no acute finding. IMPRESSION: 1. Mild diffuse colonic wall thickening, nonspecific. Consider infectious or inflammatory colitis. Ischemic causes considered unlikely. 2. Borderline enlarged ileocolic lymph nodes, likely reactive. The appendix is normal in caliber. 3. Right-sided nephrolithiasis, nonobstructive. Electronically signed by: Everton Rebolledo MD (02/11/2021 12:38 PM) [id number] DICTATED and SIGNED BY: EVERTON REBOLLEDO MD DATE: 02/11/21 [id number] VTE Prophylaxis Ordered VTE Prophylaxis Devices: Yes VTE Pharmacological Prophylaxi: Yes Assessment/Plan Assessment/Plan IMPRESSION: Acute abdominal pain, intractable without rectal bleeding, but characterized by frequent diarrhea and marked weight loss ACUTE diffuse colonic wall thickening, nonspecific. infectious or inflammatory colitis. Ischemic /unlikely. BY CT 02-11 Borderline enlarged ileocolic lymph nodes, reactive.appendix normal in caliber. Right-sided nephrolithiasis, nonobstructive. positive UDS Cocaine / states boyfriend used to sell cocaine, she admits to last use one year ago Leukocytosis Abnormal WEIGHT LOSS Hypomagnesemia plan ADMIT NPO IV FLUIDS GI CONSULT Stool enteric pathogens pain control ESR IBD PANEL DVT PROPHYLAXIS Stool fecal leukocytes replace mg iv D/W ER DR Justifications for Admission Other Justification CHIO HAZEL MD Feb 11, 2021 13:30
[2021-02-11] MEDS ORDERED: HYDROmorphone 2 MG/ML VIAL IVP ONE (13:45)
[2021-02-11] MEDS ORDERED: ONDANSETRON PF 4 MG/2 ML VIAL. IV PRN (14:00)
[2021-02-11] MEDS ORDERED: ALBUTEROL SULFATE 2.5 MG/3 ML NEBU. NEB PRN (14:00)
[2021-02-11] MEDS ORDERED: diphenhydrAMINE 50 MG/ML VIAL IVP PRN (14:00)
[2021-02-11] MEDS ORDERED: ACETAMINOPHEN 325 MG TABLET. PO PRN (14:00)
[2021-02-11] MEDS ORDERED: guaiFENesin ORAL 200 MG/10 ML LIQUID. PO PRN (14:00)
[2021-02-11] MEDS ORDERED: cloNIDine HCL 0.1 MG TABLET PO PRN (14:00)
[2021-02-11] MEDS ORDERED: ACETAMINOPHEN 650 MG SUPP.RECT. PR PRN (14:00)
[2021-02-11] MEDS ORDERED: CIPROFLOXACIN 400MG PREMIX 200 ML IV ONE (14:00)
[2021-02-11] MEDS ORDERED: 0.9 % SODIUM CHLORIDE 10 ML DISP.SYRIN. IV PRN (14:00)
[2021-02-11 14:30] VITALS: BP 113/72
--- NOTE | 2021-02-11 15:36 | PDOC2 ---
CONSULT Date of Consult Date of Consult DATE: 02/11/21 TIME: 15:31 Reason for Consult Reason for Consult: Abdominal pain, diarrhea, questionable colitis on CT, abnormal labs History of Present Illness Reason for Visit: This is a 31-year-old female who describes for the last 5 months worsening diarrhea symptoms with crampy abdominal pain after eating. Most of her diarrhea is after meals but she will have diarrhea other times as well. She denies any obvious bleeding in her stools. She was given some dicyclomine in the outp atient setting by her primary care physician at [facility] but has not had any other treatment. She apparently has been seen there and is awaiting further work-up but has not had an EGD or colonoscopy or other testing. She thinks a stool test was done to look for blood which apparently showed a small amount of blood but she did not see the blood. She has had intermittent diarrhea in the past but was never persistent. She denies any obvious triggers that might of started this back in September. No new medications, no exposure to antibiotics. She is concerned because her mother and other family members have a history of colitis or Crohn's disease. Past Medical History Psych: Addictions Infectious disease: No pertinent hx Renal/: No pertinent hx Endocrine: No pertinent hx Dermatology: No pertinent hx Social History <1 pack per day ALCOHOL: occassional Drugs: Cocaine Current Problem List Problem List Problems Medical Problems: (1) Cocaine abuse Status: Acute (2) Hypomagnesemia Status: Acute (3) Infectious colitis Status: Acute Current Medications Current Medications Current Medications Sodium Chloride 1,000 ml @ 1,000 mls/hr 1X ONCE IV Last administered on 02/11/21at 11:08; Start 02/11/21 at 10:30; Stop 02/11/21 at 11:29; Status DC Magnesium Sulfate/ Dextrose 100 ml @ 100 mls/hr 1X ONCE IV Last administered on 02/11/21at 11:08; Start 02/11/21 at 11:00; Stop 02/11/21 at 11:59; Status DC Ketorolac Tromethamine (Toradol 15mg Vial) 15 mg 1X ONCE IVP Last administered on 02/11/21at 11:08; Start 02/11/21 at 10:45; Stop 02/11/21 at 10:46; Status DC Fentanyl Citrate (Fentanyl 2ml Vial) 75 mcg 1X ONCE IVP Last administered on 02/11/21at 11:07; Start 02/11/21 at 10:45; Stop 02/11/21 at 10:46; Status DC Iohexol (Omnipaque 300 Mg/ml) 75 ml 1X ONCE IV Last administered on 02/11/21at 12:23; Start 02/11/21 at 12:00; Stop 02/11/21 at 12:01; Status DC Iohexol (Omnipaque 240 Mg/ml) 50 ml 1X ONCE PO Last administered on 02/11/21at 11:30; Start 02/11/21 at 11:30; Stop 02/11/21 at 11:31; Status DC Info (CONTRAST GIVEN -- Rx MONITORING) 1 each PRN DAILY PRN MC SEE COMMENTS; Start 02/11/21 at 11:30; Stop 02/13/21 at 11:29 Hydromorphone HCl (Dilaudid) 0.5 mg 1X ONCE IVP Last administered on 02/11/21at 13:48; Start 02/11/21 at 13:45; Stop 02/11/21 at 13:46; Status DC Ciprofloxacin/ Dextrose 200 ml @ 200 mls/hr 1X ONCE IV Last administered on 02/11/21at 13:47; Start 02/11/21 at 14:00; Stop 02/11/21 at 14:59; Status DC Metronidazole 100 ml @ 100 mls/hr 1X ONCE IV ; Start 02/11/21 at 13:30; Stop 02/11/21 at 14:29; Status DC Sodium Chloride (Normal Saline Flush) 3 ml QSHIFT PRN IV AFTER MEDS AND BLOOD DRAWS; Start 02/11/21 at 14:00 Sodium Chloride 1,000 ml @ 150 mls/hr Q6H40M IV ; Start 02/11/21 at 15:00 Ondansetron HCl (Zofran) 4 mg PRN Q4HRS PRN IV NAUSEA/VOMITING; Start 02/11/21 at 14:00 Acetaminophen (Tylenol) 650 mg PRN Q4HRS PRN PO TEMP OVER 100.4F OR MILD PAIN; Start 02/11/21 at 14:00 Acetaminophen (Tylenol Supp) 650 mg PRN Q4HRS PRN [place] TEMP OVER 100.4F OR MILD PAIN; Start 02/11/21 at 14:00 Clonidine HCl (Catapres) 0.1 mg PRN Q6HRS PRN PO SBP>160 OR DBP>90; Start 02/11/21 at 14:00 Diphenhydramine HCl (Benadryl) 25 mg PRN Q4HRS PRN IVP ITCHING; Start 02/11/21 at 14:00 Albuterol Sulfate (Ventolin Neb Soln) 2.5 mg PRN Q4HRS PRN NEB SHORTNESS OF BREATH; Start 02/11/21 at 14:00 Guaifenesin (Robitussin) 200 mg PRN Q4HRS PRN PO COUGH; Start 02/11/21 at 14:00 Lorazepam (Ativan) 0.5 mg PRN Q4HRS PRN PO ANXIETY / AGITATION; Start 02/11/21 at 14:00 Enoxaparin Sodium (Lovenox 40mg Syringe) 40 mg Q24H SQ ; Start 02/11/21 at 16:00 Metronidazole 100 ml @ 100 mls/hr Q8HRS IV ; Start 02/11/21 at 22:00 Hydromorphone HCl (Dilaudid) 0.5 mg PRN Q3HRS PRN IVP SEVERE PAIN 7-10; Start 02/11/21 at 14:15 Active Scripts Active Keflex (Cephalexin) 500 Mg Capsule 1 Cap PO BID 7 Days Cyclobenzaprine Hcl 5 Mg Tablet 1 Tab PO QHS Medrol (Methylprednisolone) 4 Mg Tab.ds.pk 1 Pkg PO UD Doxycycline Hyclate 100 Mg Tablet.dr 1 Tab PO BID Prednisone 20 Mg Tablet 2 Tab PO DAILY 5 Days Hydrocodone-Apap 5-325 (Hydrocodone Bit/Acetaminophen) 1 Each Tablet 1 Tab PO PRN Q6HRS PRN Be careful as this medication may cause you to be drowsy or tired. Do not drive on this medication. Allergies Allergies: Coded Allergies: Penicillins (Verified Allergy, Intermediate, 07/05/14) Sulfa (Sulfonamide Antibiotics) (Verified Allergy, Intermediate, Rash, 07/05/14) latex (Verified Allergy, Intermediate, Rash, 07/05/14) codeine (Verified Adverse Reaction, Intermediate, Severe vomiting. , 07/05/14) Physical Exam General: Alert, Oriented X3, Other (Tearful) HEENT: Atraumatic Lungs: Clear to auscultation Heart: Regular rate, Normal S1, Normal S2 Abdomen: Normal bowel sounds, Soft, No hepatosplenomegaly, No masses Extremities: No cyanosis Neuro: Normal speech Psych/Mental Status: Mental status NL Vitals VITALS Vital Signs Date Time Temp Pulse Resp B/P (MAP) Pulse Ox O2 Delivery O2 Flow Rate FiO2 02/11/21 13:48 16 98 Room Air 02/11/21 13:25 79 107/72 (84) 02/11/21 09:30 98.8 98.8 Labs Labs Laboratory Tests Test 02/11/21 09:32 02/11/21 09:41 02/11/21 09:55 Urine Collection Type Unknown Urine Color Yellow Urine Clarity Clear Urine pH 6.5 (<5.0-8.0) Urine Specific [place] >=1.030 (1.000-1.030) Urine Protein Negative mg/dL (NEG-TRACE) Urine Glucose (UA) Negative mg/dL (NEG) Urine Ketones (Stick) Negative mg/dL (NEG) Urine Blood Negative (NEG) Urine Nitrite Negative (NEG) Urine Bilirubin Negative (NEG) Urine Urobilinogen Dipstick 0.2 mg/dL (0.2 mg/dL) Urine Leukocyte Esterase Negative (NEG) Urine RBC Occ /HPF (0-2) Urine WBC 1-4 /HPF (0-4) Urine Squamous Epithelial Cells Many /LPF Urine Bacteria Few /HPF (0-FEW) Urine Mucus Marked /LPF Urine Opiates Screen Neg (NEG) Urine Methadone Screen Neg (NEG) Urine Barbiturates Neg (NEG) Urine Phencyclidine Screen Neg (NEG) Urine Amphetamine/Methamphetamine Neg (NEG) Urine Benzodiazepines Screen Neg (NEG) Urine Cocaine Screen Pos (NEG) Urine Cannabinoids Screen Neg (NEG) Urine Ethyl Alcohol Neg (NEG) Bedside Urine HCG, Qualitative Hcg negative (Negative) White Blood Count 13.4 x10^3/uL (4.0-11.0) Red Blood Count 4.04 x10^6/uL (3.50-5.40) Hemoglobin 11.5 g/dL (12.0-15.5) Hematocrit 35.1 % (36.0-47.0) Mean Corpuscular Volume 87 fL (79-100) Mean Corpuscular Hemoglobin 29 pg (25-35) Mean Corpuscular Hemoglobin Concent 33 g/dL (31-37) Red Cell Distribution Width 14.5 % (11.5-14.5) Platelet Count 493 x10^3/uL (140-400) Neutrophils (%) (Auto) 81 % (31-73) Lymphocytes (%) (Auto) 11 % (24-48) Monocytes (%) (Auto) 5 % (0-9) Eosinophils (%) (Auto) 2 % (0-3) Basophils (%) (Auto) 1 % (0-3) Neutrophils # (Auto) 10.9 x10^3/uL (1.8-7.7) Lymphocytes # (Auto) 1.5 x10^3/uL (1.0-4.8) Monocytes # (Auto) 0.6 x10^3/uL (0.0-1.1) Eosinophils # (Auto) 0.3 x10^3/uL (0.0-0.7) Basophils # (Auto) 0.1 x10^3/uL (0.0-0.2) Erythrocyte Sedimentation Rate 65 (0-25) Sodium Level 141 mmol/L (136-145) Potassium Level 3.5 mmol/L (3.5-5.1) Chloride Level 102 mmol/L (98-107) Carbon Dioxide Level 28 mmol/L (21-32) Anion Gap 11 (6-14) Blood Urea Nitrogen 7 mg/dL (7-20) Creatinine 0.8 mg/dL (0.6-1.0) Estimated GFR (Cockcroft-Gault) 82.6 BUN/Creatinine Ratio 9 (6-20) Glucose Level 122 mg/dL (70-99) Calcium Level 8.8 mg/dL (8.5-10.1) Magnesium Level 1.7 mg/dL (1.8-2.4) Total Bilirubin 0.3 mg/dL (0.2-1.0) Aspartate Amino Transf (AST/SGOT) 21 U/L (15-37) Alanine Aminotransferase (ALT/SGPT) 26 U/L (14-59) Alkaline Phosphatase 117 U/L (46-116) C-Reactive Protein, Quantitative 56.8 mg/L (0-3.3) Total Protein 8.1 g/dL (6.4-8.2) Albumin 3.0 g/dL (3.4-5.0) Albumin/Globulin Ratio 0.6 (1.0-1.7) Lipase 75 U/L (73-393) Laboratory Tests Test 02/11/21 09:32 02/11/21 09:41 02/11/21 09:55 Urine Collection Type Unknown Urine Color Yellow Urine Clarity Clear Urine pH 6.5 (<5.0-8.0) Urine Specific [place] >=1.030 (1.000-1.030) Urine Protein Negative mg/dL (NEG-TRACE) Urine Glucose (UA) Negative mg/dL (NEG) Urine Ketones (Stick) Negative mg/dL (NEG) Urine Blood Negative (NEG) Urine Nitrite Negative (NEG) Urine Bilirubin Negative (NEG) Urine Urobilinogen Dipstick 0.2 mg/dL (0.2 mg/dL) Urine Leukocyte Esterase Negative (NEG) Urine RBC Occ /HPF (0-2) Urine WBC 1-4 /HPF (0-4) Urine Squamous Epithelial Cells Many /LPF Urine Bacteria Few /HPF (0-FEW) Urine Mucus Marked /LPF Urine Opiates Screen Neg (NEG) Urine Methadone Screen Neg (NEG) Urine Barbiturates Neg (NEG) Urine Phencyclidine Screen Neg (NEG) Urine Amphetamine/Methamphetamine Neg (NEG) Urine Benzodiazepines Screen Neg (NEG) Urine Cocaine Screen Pos (NEG) Urine Cannabinoids Screen Neg (NEG) Urine Ethyl Alcohol Neg (NEG) Bedside Urine HCG, Qualitative Hcg negative (Negative) White Blood Count 13.4 x10^3/uL (4.0-11.0) Red Blood Count 4.04 x10^6/uL (3.50-5.40) Hemoglobin 11.5 g/dL (12.0-15.5) Hematocrit 35.1 % (36.0-47.0) Mean Corpuscular Volume 87 fL (79-100) Mean Corpuscular Hemoglobin 29 pg (25-35) Mean Corpuscular Hemoglobin Concent 33 g/dL (31-37) Red Cell Distribution Width 14.5 % (11.5-14.5) Platelet Count 493 x10^3/uL (140-400) Neutrophils (%) (Auto) 81 % (31-73) Lymphocytes (%) (Auto) 11 % (24-48) Monocytes (%) (Auto) 5 % (0-9) Eosinophils (%) (Auto) 2 % (0-3) Basophils (%) (Auto) 1 % (0-3) Neutrophils # (Auto) 10.9 x10^3/uL (1.8-7.7) Lymphocytes # (Auto) 1.5 x10^3/uL (1.0-4.8) Monocytes # (Auto) 0.6 x10^3/uL (0.0-1.1) Eosinophils # (Auto) 0.3 x10^3/uL (0.0-0.7) Basophils # (Auto) 0.1 x10^3/uL (0.0-0.2) Erythrocyte Sedimentation Rate 65 (0-25) Sodium Level 141 mmol/L (136-145) Potassium Level 3.5 mmol/L (3.5-5.1) Chloride Level 102 mmol/L (98-107) Carbon Dioxide Level 28 mmol/L (21-32) Anion Gap 11 (6-14) Blood Urea Nitrogen 7 mg/dL (7-20) Creatinine 0.8 mg/dL (0.6-1.0) Estimated GFR (Cockcroft-Gault) 82.6 BUN/Creatinine Ratio 9 (6-20) Glucose Level 122 mg/dL (70-99) Calcium Level 8.8 mg/dL (8.5-10.1) Magnesium Level 1.7 mg/dL (1.8-2.4) Total Bilirubin 0.3 mg/dL (0.2-1.0) Aspartate Amino Transf (AST/SGOT) 21 U/L (15-37) Alanine Aminotransferase (ALT/SGPT) 26 U/L (14-59) Alkaline Phosphatase 117 U/L (46-116) C-Reactive Protein, Quantitative 56.8 mg/L (0-3.3) Total Protein 8.1 g/dL (6.4-8.2) Albumin 3.0 g/dL (3.4-5.0) Albumin/Globulin Ratio 0.6 (1.0-1.7) Lipase 75 U/L (73-393) Images Images CT FINDINGS: Limited images of the lung bases are clear. Heart size within normal limits. No pleural or pericardial effusion. Liver, spleen, pancreas, adrenal glands unremarkable. The gallbladder is relatively collapsed and not well evaluated. There is a 2 mm calcific stone at the upper pole right kidney. No calcific stone on the left. No ureteral stone or hydronephrosis. There is mild circumferential wall thickening of the ascending colon and transverse colon with mild pericolonic inflammatory stranding. The appendix is normal in caliber. The small bowel is unremarkable. There are a few borderline enlarged lymph nodes in the ileocolic region. No retroperitoneal adenopathy. The abdominal aorta is normal in caliber. Images of pelvis show mildly distended urinary bladder. Uterus and adnexa unremarkable. Trace amount of free pelvic fluid. No pelvic adenopathy. Bone windows show no acute finding. IMPRESSION: 1. Mild diffuse colonic wall thickening, nonspecific. Consider infectious or inflammatory colitis. Ischemic causes considered unlikely. 2. Borderline enlarged ileocolic lymph nodes, likely reactive. The appendix is normal in caliber. 3. Right-sided nephrolithiasis, nonobstructive. Assessment/Plan Assessment/Plan 5 months of diarrhea with abdominal cramping after eating. These are nonspecific findings but the CT scan does suggest the possibility of mild colitis although CT scans in general can be misleading in that regard. The labs however are somewhat concerning. She has a slightly elevated white count and more significantly has an elevated sed rate and C-reactive protein. These are suspicious for underlying inflammatory bowel disease as a potential cause for these complaints. Certainly an infectious cause should be excluded but seems less likely with the chronic nature of her symptoms. Plan: Check stool studies for infection and white cells Start empirically on prednisone Continue dicyclomine therapy Plan : elective EGD and colonoscopy to evaluate for gastritis, celiac disease, inflammatory bowel disease etc.- These will be more likely done in the outpatient setting if we can get her symptoms under control. LUIS VERDUGO MD Feb 11, 2021 15:36
[2021-02-11] MEDS ORDERED: DICYCLOMINE HCL 10 MG CAPSULE PO PRN (15:45)
[2021-02-11] MEDS ORDERED: methylPREDNISolone SOD SUCC PF 40 MG/ML VIAL. IV ONE (15:45)
[2021-02-11] MEDS ORDERED: ERGO500089 PO (15:52)
[2021-02-11] MEDS ORDERED: DICY10CA3 PO (15:52)
[2021-02-11] MEDS ORDERED: FERR325T14 PO (15:52)
[2021-02-11] MEDS ORDERED: IOHEXOL 240 MG/ML 50ML VIAL. ONE (16:30)
[2021-02-11] MEDS: ENOXAPARIN 40 MG/0.4 ML SYRINGE. SQ SCH (16:48)
[2021-02-11] MEDS: HYDROmorphone 2 MG/ML VIAL IVP PRN ×2 (16:56→20:50)
[2021-02-11] MEDS: IV NORMAL SALINE 1000ML BAG 1,000 ML IV SCH ×2 (16:57→22:41)
[2021-02-11 19:25] VITALS: BP 112/71
[2021-02-11] MEDS: LORazepam 0.5 MG TABLET PO PRN (20:49)
[2021-02-11 23:28] VITALS: BP 99/67
[2021-02-12] MEDS: HYDROmorphone 2 MG/ML VIAL IVP PRN ×5 (02:44→20:22)
[2021-02-12 02:56] VITALS: BP 109/68
[2021-02-12] MEDS: IV NORMAL SALINE 1000ML BAG 1,000 ML IV SCH ×2 (05:53→11:00)
[2021-02-12 06:46] LABS: BASO % 0 % (0-3); EOS % 0 % (0-3); HEMATOCRIT 29.6 % (36.0-47.0); HEMOGLOBIN 9.6 g/dL (12.0-15.5); LYMPH # 0.7 x10^3/uL (1.0-4.8); LYMPH % 7 % (24-48); MEAN CORPUSCULAR HEMOGLOBIN 28 pg (25-35); MEAN CORPUSCULAR HGB CONC 33 g/dL (31-37); MEAN CORPUSCULAR VOLUME 88 fL (79-100); MONO # 0.5 x10^3/uL (0.0-1.1); MONO % 4 % (0-9); NEUT # 9.8 x10^3/uL (1.8-7.7); NEUT % 89 % (31-73); PLATELET COUNT 354 x10^3/uL (140-400); RED BLOOD COUNT 3.38 x10^6/uL (3.50-5.40); RED CELL DISTRIBUTION WIDTH 14.3 % (11.5-14.5)
[2021-02-12 07:02] VITALS: BP 142/105
[2021-02-12 07:16] LABS: ALBUMIN 2.4 g/dL (3.4-5.0); ALBUMIN/GLOBULIN RATIO 0.6 (1.0-1.7); CALCIUM 8.3 mg/dL (8.5-10.1); CREATININE 0.7 mg/dL (0.6-1.0); GFR 96.4; POTASSIUM 4.1 mmol/L (3.5-5.1); TOTAL BILIRUBIN 0.3 mg/dL (0.2-1.0); TOTAL PROTEIN 6.7 g/dL (6.4-8.2)
[2021-02-12] MEDS: predniSONE 20 MG TABLET PO SCH (08:23)
--- NOTE | 2021-02-12 10:34 | NUR ---
SW following. Discussed with RN, pt from home with family, room air, NPO. GI following. Pt positive for Cocaine - awaiting confirmation from Dr. Camejo if he would like the patient to be seen by the PAT team. RN advised no other SW needs at this time. SW will continue to follow.
[2021-02-12 10:38] VITALS: BP 110/78
[2021-02-12 11:13] LABS: % BANDS 1 % (0-9); % LYMPHS 7 % (24-48); % MONOS 1 % (0-10); % SEGS 91 % (35-66)
[2021-02-12 11:14] LABS: PLT ESTIMATE ADEQUATE (ADEQUATE)
--- NOTE | 2021-02-12 12:47 | PDOC ---
[employer] PROGRESS NOTE Date of Service DOS: DATE: 02/12/21 TIME: 12:18 Chief Complaint Chief Complaint Acute abdominal pain, intractable without rectal bleeding, but characterized by frequent diarrhea and marked weight loss ACUTE diffuse colonic wall thickening, nonspecific. infectious or inflammatory colitis. Ischemic /unlikely. BY CT 02-11 Borderline enlarged ileocolic lymph nodes, reactive.appendix normal in caliber. Right-sided nephrolithiasis, nonobstructive. positive UDS Cocaine / states boyfriend used to sell cocaine, she admits to last use one year ago Leukocytosis Abnormal WEIGHT LOSS Hypomagnesemia plan ADMIT NPO IV FLUIDS GI CONSULT Stool enteric pathogens pain control ESR IBD PANEL DVT PROPHYLAXIS Stool fecal leukocytes replace mg iv History of Present Illness History of Present Illness Ms Wheatley is a 31-year-old female presented the ED with her biological mother (patient consents to his/her/their knowledge and involvement in pts' medical care), complains of intermittent episodes of diffuse abdominal pain with 4 daily loose watery diarrhea since September 2020. reports her mother has history of Crohn's seen December 15 at and was prescribed Bentyl and referred for colonoscopy, but this has been rescheduled multiple times CT 02/11/21 concerning for IBD vs infectious etiology, stool cultured, pt npo, GI consulted UDS pos cocaine, pt denies recent use but states boyfriend used to sell cocaine, she admits to last use one year ago She still having some pain on bowel movements and crampy. No rectal pain. Afebrile. Pain is improved from admission. She also has nausea and is scared to eat. Stool sample sent to lab is pending results currently. Vitals/I&O Vitals/I&O: Vital Signs Date Time Temp Pulse Resp B/P (MAP) Pulse Ox O2 Delivery O2 Flow Rate FiO2 02/12/21 10:51 Room Air 02/12/21 10:38 98.0 94 18 110/78 (89) 99 98.0 I & O 02/11/21 02/11/21 02/12/21 15:00 23:00 07:00 Intake Total 1100 ml Balance 1100 ml Physical Exam General: Alert, Oriented X3, Other (Tearful) Heart: Regular rate, Normal S1, Normal S2 Abdomen: Normal bowel sounds, Soft, No hepatosplenomegaly, No masses Extremities: No cyanosis Skin: No significant lesion Labs Labs: Laboratory Tests Test 02/12/21 06:00 White Blood Count 11.0 x10^3/uL (4.0-11.0) Red Blood Count 3.38 x10^6/uL (3.50-5.40) Hemoglobin 9.6 g/dL (12.0-15.5) Hematocrit 29.6 % (36.0-47.0) Mean Corpuscular Volume 88 fL (79-100) Mean Corpuscular Hemoglobin 28 pg (25-35) Mean Corpuscular Hemoglobin Concent 33 g/dL (31-37) Red Cell Distribution Width 14.3 % (11.5-14.5) Platelet Count 354 x10^3/uL (140-400) Neutrophils (%) (Auto) 89 % (31-73) Lymphocytes (%) (Auto) 7 % (24-48) Monocytes (%) (Auto) 4 % (0-9) Eosinophils (%) (Auto) 0 % (0-3) Basophils (%) (Auto) 0 % (0-3) Neutrophils # (Auto) 9.8 x10^3/uL (1.8-7.7) Lymphocytes # (Auto) 0.7 x10^3/uL (1.0-4.8) Monocytes # (Auto) 0.5 x10^3/uL (0.0-1.1) Eosinophils # (Auto) 0.0 x10^3/uL (0.0-0.7) Basophils # (Auto) 0.0 x10^3/uL (0.0-0.2) Segmented Neutrophils % 91 % (35-66) Band Neutrophils % 1 % (0-9) Lymphocytes % 7 % (24-48) Monocytes % 1 % (0-10) Platelet Estimate Adequate (ADEQUATE) Sodium Level 141 mmol/L (136-145) Potassium Level 4.1 mmol/L (3.5-5.1) Chloride Level 107 mmol/L (98-107) Carbon Dioxide Level 25 mmol/L (21-32) Anion Gap 9 (6-14) Blood Urea Nitrogen 8 mg/dL (7-20) Creatinine 0.7 mg/dL (0.6-1.0) Estimated GFR (Cockcroft-Gault) 96.4 BUN/Creatinine Ratio 11 (6-20) Glucose Level 115 mg/dL (70-99) Calcium Level 8.3 mg/dL (8.5-10.1) Total Bilirubin 0.3 mg/dL (0.2-1.0) Aspartate Amino Transf (AST/SGOT) 10 U/L (15-37) Alanine Aminotransferase (ALT/SGPT) 18 U/L (14-59) Alkaline Phosphatase 87 U/L (46-116) Total Protein 6.7 g/dL (6.4-8.2) Albumin 2.4 g/dL (3.4-5.0) Albumin/Globulin Ratio 0.6 (1.0-1.7) Assessment and Plan Assessmemt and Plan Problems Medical Problems: (1) Cocaine abuse Status: Acute (2) Hypomagnesemia Status: Acute (3) Infectious colitis Status: Acute Comment Review of Relevant I have reviewed the following items tamanna (where applicable) has been applied. Medications: Current Medications Medications (Trade) Dose Ordered Sig/[place] Route PRN Reason Start Time Stop Time Status Last Admin Dose Admin Hydromorphone HCl (Dilaudid) 0.5 mg 1X ONCE IVP 02/11/21 13:45 02/11/21 13:46 DC 02/11/21 13:48 Ciprofloxacin/ Dextrose 200 ml @ 200 mls/hr 1X ONCE IV 02/11/21 14:00 02/11/21 14:59 DC 02/11/21 13:47 Metronidazole 100 ml @ 100 mls/hr 1X ONCE IV 02/11/21 13:30 02/11/21 14:29 DC 02/11/21 16:56 Sodium Chloride 1,000 ml @ 150 mls/hr Q6H40M IV 02/11/21 15:00 02/12/21 05:53 Acetaminophen (Tylenol) 650 mg PRN Q4HRS PRN PO TEMP OVER 100.4F OR MILD PAIN 02/11/21 14:00 02/11/21 20:57 Clonidine HCl (Catapres) 0.1 mg PRN Q6HRS PRN PO SBP>160 OR DBP>90 02/11/21 14:00 02/12/21 08:22 Lorazepam (Ativan) 0.5 mg PRN Q4HRS PRN PO ANXIETY / AGITATION 02/11/21 14:00 02/11/21 20:49 Enoxaparin Sodium (Lovenox 40mg Syringe) 40 mg Q24H SQ 02/11/21 16:00 02/11/21 16:48 Metronidazole 100 ml @ 100 mls/hr Q8HRS IV 02/11/21 22:00 02/12/21 05:55 Hydromorphone HCl (Dilaudid) 0.5 mg PRN Q3HRS PRN IVP SEVERE PAIN 7-10 02/11/21 14:15 02/12/21 10:09 Dicyclomine HCl (Bentyl) 20 mg PRN TID PRN PO ABDOMINAL CRAMPS 02/11/21 15:45 02/12/21 05:55 Methylprednisolone Sodium Succinate (SOLU-Medrol 40MG VIAL) 40 mg 1X ONCE IV 02/11/21 15:45 02/11/21 15:46 DC 02/11/21 16:49 Prednisone (Prednisone) 30 mg DAILY PO 02/12/21 09:00 02/12/21 08:23 Justifications for Admission Other Justification INTRACTABLE ABDOMINAL PAIN MALLORY PRINCE MD Feb 12, 2021 12:47
[2021-02-12 14:34] VITALS: BP 101/74
[2021-02-12] MEDS: ENOXAPARIN 40 MG/0.4 ML SYRINGE. SQ SCH (16:14)
[2021-02-12] MEDS ORDERED: POLYETHYLENE GLYCOL 3350 BTL 238 GM POWDER PO ONE (16:15)
--- NOTE | 2021-02-12 17:00 | PDOC ---
GI PROGRESS NOTES Date of Service: Date/Time DATE: 02/12/21 TIME: 16:57 Subjective Subjective improved- less cramps and diarrhea after dicyclomine and steroids- only on CLD Objective Vitals Vital Signs Date Time Temp Pulse Resp B/P (MAP) Pulse Ox O2 Delivery O2 Flow Rate FiO2 02/12/21 16:52 Room Air 02/12/21 16:14 Room Air 02/12/21 14:34 97.8 74 18 101/74 (83) 98 Room Air 97.8 02/12/21 10:51 Room Air 02/12/21 10:38 98.0 94 18 110/78 (89) 99 Room Air 98.0 02/12/21 10:09 Room Air 02/12/21 08:22 91 142/105 02/12/21 07:58 Room Air 02/12/21 07:30 Room Air 02/12/21 07:02 98.1 91 18 142/105 (117) 100 Room Air 98.1 02/12/21 06:45 20 97 Room Air 02/12/21 03:14 20 97 Room Air 02/12/21 02:56 97.9 90 18 109/68 (82) 97 Room Air 97.9 02/12/21 02:44 20 96 Room Air 02/11/21 23:28 98.6 90 18 99/67 (78) 96 Room Air 98.6 02/11/21 21:20 20 96 Room Air 02/11/21 20:50 20 96 Room Air 02/11/21 20:00 Room Air 02/11/21 19:25 101.6 109 18 112/71 (85) 96 Room Air 101.6 02/11/21 17:55 Room Air Labs Labs Laboratory Tests Test 02/12/21 06:00 02/12/21 15:15 White Blood Count 11.0 x10^3/uL (4.0-11.0) Red Blood Count 3.38 x10^6/uL (3.50-5.40) Hemoglobin 9.6 g/dL (12.0-15.5) Hematocrit 29.6 % (36.0-47.0) Mean Corpuscular Volume 88 fL (79-100) Mean Corpuscular Hemoglobin 28 pg (25-35) Mean Corpuscular Hemoglobin Concent 33 g/dL (31-37) Red Cell Distribution Width 14.3 % (11.5-14.5) Platelet Count 354 x10^3/uL (140-400) Neutrophils (%) (Auto) 89 % (31-73) Lymphocytes (%) (Auto) 7 % (24-48) Monocytes (%) (Auto) 4 % (0-9) Eosinophils (%) (Auto) 0 % (0-3) Basophils (%) (Auto) 0 % (0-3) Neutrophils # (Auto) 9.8 x10^3/uL (1.8-7.7) Lymphocytes # (Auto) 0.7 x10^3/uL (1.0-4.8) Monocytes # (Auto) 0.5 x10^3/uL (0.0-1.1) Eosinophils # (Auto) 0.0 x10^3/uL (0.0-0.7) Basophils # (Auto) 0.0 x10^3/uL (0.0-0.2) Segmented Neutrophils % 91 % (35-66) Band Neutrophils % 1 % (0-9) Lymphocytes % 7 % (24-48) Monocytes % 1 % (0-10) Platelet Estimate Adequate (ADEQUATE) Sodium Level 141 mmol/L (136-145) Potassium Level 4.1 mmol/L (3.5-5.1) Chloride Level 107 mmol/L (98-107) Carbon Dioxide Level 25 mmol/L (21-32) Anion Gap 9 (6-14) Blood Urea Nitrogen 8 mg/dL (7-20) Creatinine 0.7 mg/dL (0.6-1.0) Estimated GFR (Cockcroft-Gault) 96.4 BUN/Creatinine Ratio 11 (6-20) Glucose Level 115 mg/dL (70-99) Calcium Level 8.3 mg/dL (8.5-10.1) Magnesium Level 1.7 mg/dL (1.8-2.4) Total Bilirubin 0.3 mg/dL (0.2-1.0) Aspartate Amino Transf (AST/SGOT) 10 U/L (15-37) Alanine Aminotransferase (ALT/SGPT) 18 U/L (14-59) Alkaline Phosphatase 87 U/L (46-116) Total Protein 6.7 g/dL (6.4-8.2) Albumin 2.4 g/dL (3.4-5.0) Albumin/Globulin Ratio 0.6 (1.0-1.7) SARS-CoV-2 Antigen (Rapid) Negative (NEGATIVE) Physical Exam Physical Exam alert chest- clear abd- soft mildy tender, normal bowel sounds Assessment Assessment Chronic diarrhea Abd crampy pain food intolerence Elevated ESR and CRP- concerned about colitis, IBD etc Plan Plan Continue meds await stool studies proceed with EGD and colonoscopy tomorrow at 12:30 pm Justicifation of Admission Dx: Justifications for Admission: Justification of Admission Dx: Yes LUIS VERDUGO MD Feb 12, 2021 17:00
[2021-02-12 19:00] VITALS: BP 113/76
[2021-02-12] MEDS: LACTOBACILLUS RHAMNOSUS GG 1 CAPSULE. PO SCH (22:13)
[2021-02-12 23:00] VITALS: BP 112/81
[2021-02-12] MEDS: LORazepam 0.5 MG TABLET PO PRN (23:33)
[2021-02-13] MEDS: HYDROmorphone 2 MG/ML VIAL IVP PRN ×5 (00:29→16:37)
[2021-02-13 03:00] VITALS: BP 91/59
[2021-02-13 07:00] VITALS: BP 99/73
[2021-02-13] MEDS: predniSONE 20 MG TABLET PO SCH (07:45)
[2021-02-13] MEDS: LACTOBACILLUS RHAMNOSUS GG 1 CAPSULE. PO SCH (07:45)
[2021-02-13] MEDS ORDERED: IV RINGERS,LACTATED 1000ML 1,000 ML IV ONE (09:15)
--- NOTE | 2021-02-13 11:16 | PDOC ---
[employer] PROGRESS NOTE Date of Service DOS: DATE: 02/13/21 TIME: 11:14 Chief Complaint Chief Complaint Acute abdominal pain, intractable without rectal bleeding, but characterized by frequent diarrhea and marked weight loss ACUTE diffuse colonic wall thickening, nonspecific. infectious or inflammatory colitis. Ischemic /unlikely. BY CT 02-11 Borderline enlarged ileocolic lymph nodes, reactive.appendix normal in caliber. Right-sided nephrolithiasis, nonobstructive. positive UDS Cocaine / states boyfriend used to sell cocaine, she admits to last use one year ago Leukocytosis Abnormal WEIGHT LOSS Hypomagnesemia plan ADMIT NPO IV FLUIDS GI CONSULT Stool enteric pathogens pain control ESR IBD PANEL DVT PROPHYLAXIS Stool fecal leukocytes replace mg iv History of Present Illness History of Present Illness Ms Wheatley is a 31-year-old female presented the ED with her biological mother (patient consents to his/her/their knowledge and involvement in pts' medical care), complains of intermittent episodes of diffuse abdominal pain with 4 daily loose watery diarrhea since September 2020. reports her mother has history of Crohn's seen December 15 at and was prescribed Bentyl and referred for colonoscopy, but this has been rescheduled multiple times CT 02/11/21 concerning for IBD vs infectious etiology, stool cultured, pt npo, GI consulted UDS pos cocaine, pt denies recent use but states boyfriend used to sell cocaine, she admits to last use one year ago 02/12: She still having some pain on bowel movements and crampy. No rectal pain. Afebrile. Pain is improved from admission. She also has nausea and is scared to eat. Stool sample sent to lab is pending results currently. C. difficile and enteric bacterial panel negative. With steroids her pain is improved diarrhea is improved. Plan for EGD and colonoscopy today to give diagnosis of likely IBD Vitals/I&O Vitals/I&O: Vital Signs Date Time Temp Pulse Resp B/P (MAP) Pulse Ox O2 Delivery O2 Flow Rate FiO2 02/13/21 08:15 Room Air 02/13/21 07:00 97.4 81 17 99/73 (82) 99 97.4 I & O 02/12/21 02/12/21 02/13/21 15:00 23:00 07:00 Intake Total 340 ml 450 ml Balance 340 ml 450 ml Physical Exam General: Alert, Oriented X3, Other (Tearful) Heart: Regular rate, Normal S1, Normal S2 Abdomen: Normal bowel sounds, Soft, No hepatosplenomegaly, No masses Extremities: No cyanosis Skin: No significant lesion Labs Labs: Laboratory Tests Test 02/12/21 15:15 SARS-CoV-2 RNA (GAYLE) Negative (Negative) SARS-CoV-2 Antigen (Rapid) Negative (NEGATIVE) Assessment and Plan Assessmemt and Plan Problems Medical Problems: (1) Cocaine abuse Status: Acute (2) Hypomagnesemia Status: Acute (3) Infectious colitis Status: Acute Comment Review of Relevant I have reviewed the following items tamanna (where applicable) has been applied. Medications: Current Medications Medications (Trade) Dose Ordered Sig/[place] Route PRN Reason Start Time Stop Time Status Last Admin Dose Admin Lactobacillus Rhamnosus (Culturelle) 1 cap BID PO 02/12/21 21:00 02/13/21 07:45 Polyethylene Glycol (miraLAX Powder BULK BOTTLE) 238 gm 1X ONCE PO 02/12/21 16:15 02/12/21 16:21 DC 02/12/21 16:53 Justifications for Admission Other Justification INTRACTABLE ABDOMINAL PAIN MALLORY PRINCE MD Feb 13, 2021 11:16
--- NOTE | 2021-02-13 11:17 | NUR ---
SW following. Discussed with RN, pt having an EGD an colonoscopy today. RN advised no SW needs at this time. SW will continue to follow.
[2021-02-13 11:42] VITALS: BP 97/72
[2021-02-13] MEDS ORDERED: PROPOFOL 10 MG/ML (20ML) VIAL. IV ONE ×2 (13:10→13:59)
[2021-02-13] MEDS ORDERED: LIDOCAINE 2% PF 5 ML VIAL. ONE (13:11)
[2021-02-13] MEDS ORDERED: PRED20TA PO (14:54)
[2021-02-13] MEDS ORDERED: TRAM50TA PO (14:54)
[2021-02-13 15:00] VITALS: BP 106/73
--- NOTE | 2021-02-13 15:25 | PDOC3 ---
Discharge Summary Visit Information Date of Admission: Feb 11, 2021 Date of Discharge: Feb 13, 2021 Admitting Diagnosis: Colitis Final Diagnosis Problems Medical Problems: (1) Cocaine abuse Status: Acute (2) Hypomagnesemia Status: Acute (3) Infectious colitis Status: Acute Brief Hospital Course Allergies Allergies Coded Allergies Type Severity Reaction Last Updated Verified Penicillins Allergy Intermediate 07/05/14 Yes Sulfa (Sulfonamide Antibiotics) Allergy Intermediate Rash 07/05/14 Yes latex Allergy Intermediate Rash 07/05/14 Yes codeine Adverse Reaction Intermediate Severe vomiting. 07/05/14 Yes Vital Signs Vital Signs Date Time Temp Pulse Resp B/P (MAP) Pulse Ox O2 Delivery O2 Flow Rate FiO2 02/13/21 14:07 97.5 70 20 106/59 99 Room Air 97.5 Lab Results Laboratory Tests Test 02/12/21 06:00 02/12/21 06:30 02/12/21 15:15 White Blood Count 11.0 x10^3/uL (4.0-11.0) Red Blood Count 3.38 x10^6/uL (3.50-5.40) Hemoglobin 9.6 g/dL (12.0-15.5) Hematocrit 29.6 % (36.0-47.0) Mean Corpuscular Volume 88 fL (79-100) Mean Corpuscular Hemoglobin 28 pg (25-35) Mean Corpuscular Hemoglobin Concent 33 g/dL (31-37) Red Cell Distribution Width 14.3 % (11.5-14.5) Platelet Count 354 x10^3/uL (140-400) Neutrophils (%) (Auto) 89 % (31-73) Lymphocytes (%) (Auto) 7 % (24-48) Monocytes (%) (Auto) 4 % (0-9) Eosinophils (%) (Auto) 0 % (0-3) Basophils (%) (Auto) 0 % (0-3) Neutrophils # (Auto) 9.8 x10^3/uL (1.8-7.7) Lymphocytes # (Auto) 0.7 x10^3/uL (1.0-4.8) Monocytes # (Auto) 0.5 x10^3/uL (0.0-1.1) Eosinophils # (Auto) 0.0 x10^3/uL (0.0-0.7) Basophils # (Auto) 0.0 x10^3/uL (0.0-0.2) Segmented Neutrophils % 91 % (35-66) Band Neutrophils % 1 % (0-9) Lymphocytes % 7 % (24-48) Monocytes % 1 % (0-10) Platelet Estimate Adequate (ADEQUATE) Sodium Level 141 mmol/L (136-145) Potassium Level 4.1 mmol/L (3.5-5.1) Chloride Level 107 mmol/L (98-107) Carbon Dioxide Level 25 mmol/L (21-32) Anion Gap 9 (6-14) Blood Urea Nitrogen 8 mg/dL (7-20) Creatinine 0.7 mg/dL (0.6-1.0) Estimated GFR (Cockcroft-Gault) 96.4 BUN/Creatinine Ratio 11 (6-20) Glucose Level 115 mg/dL (70-99) Calcium Level 8.3 mg/dL (8.5-10.1) Magnesium Level 1.7 mg/dL (1.8-2.4) Total Bilirubin 0.3 mg/dL (0.2-1.0) Aspartate Amino Transf (AST/SGOT) 10 U/L (15-37) Alanine Aminotransferase (ALT/SGPT) 18 U/L (14-59) Alkaline Phosphatase 87 U/L (46-116) Total Protein 6.7 g/dL (6.4-8.2) Albumin 2.4 g/dL (3.4-5.0) Albumin/Globulin Ratio 0.6 (1.0-1.7) Stool Campylobacter PCR Negative (NEGATIVE) Stool E. coli Shiga Toxins (PCR) Negative (NEGATIVE) Stool Salmonella PCR Negative (NEGATIVE) Stool Shigella PCR Negative (NEGATIVE) SARS-CoV-2 RNA (GAYLE) Negative (Negative) SARS-CoV-2 Antigen (Rapid) Negative (NEGATIVE) Laboratory Tests Test 02/12/21 15:15 SARS-CoV-2 RNA (GAYLE) Negative (Negative) SARS-CoV-2 Antigen (Rapid) Negative (NEGATIVE) Brief Hospital Course Ms Wheatley is a 31-year-old female presented the ED with her biological mother (patient consents to his/her/their knowledge and involvement in pts' medical care), complains of intermittent episodes of diffuse abdominal pain with 4 daily loose watery diarrhea since September 2020. reports her mother has history of Crohn's seen December 15 at and was prescribed Bentyl and referred for colonoscopy, but this has been rescheduled multiple times CT 02/11/21 concerning for IBD vs infectious etiology, stool cultured, pt npo, GI consulted UDS pos cocaine, pt denies recent use but states boyfriend used to sell cocaine, she admits to last use one year ago 02/12: She still having some pain on bowel movements and crampy. No rectal pain. Afebrile. Pain is improved from admission. She also has nausea and is scared to eat. Sed rate 65 CRP 56.8. C. difficile and enteric bacterial panel negative. With steroids her pain is improved diarrhea is improved. EGD and colonoscopy today to give diagnosis of likely IBD presumptively crohn's based on findings. Home on prednisone with taper and outpatient follow-up with GI 2 weeks from now. Advised she needs hepatitis panel and QuantiFERON gold testing prior to starting immunomodulatory therapy. She has hands to have quadrangle done outpatient's this lab cannot be sent out afternoon from [facility]. Problem list: Acute abdominal pain, intractable without rectal bleeding, but characterized by frequent diarrhea and marked weight loss - this is Crohns diagnosed on co lonoscopy ACUTE diffuse colonic wall thickening, nonspecific. inflammatory colitis Borderline enlarged ileocolic lymph nodes, reactive.appendix normal in caliber. Right-sided nephrolithiasis, nonobstructive. Positive UDS Cocaine / states boyfriend used to sell cocaine, she admits to last use one year ago Leukocytosis Abnormal WEIGHT LOSS Hypomagnesemia Greater than 30 minutes spent on d/c home Discharge Information Condition at Discharge: Improved Follow Up: Weeks (1) Disposition/Orders: D/C to Home Scheduled Dicyclomine Hcl (Dicyclomine Hcl) 10 Mg Capsule, 10 MG PO QID for stomach, (Reported) Entered as Reported by: WILIAM NEWMAN on 02/11/211551 Last Action: New Order on 02/11/211551 by WILIAM NEWMAN Ergocalciferol (Vitamin D2) (Vitamin D2) 1,250 Mcg Capsule, 1,250 MCG PO WEEKLY for supplement, (Reported) Entered as Reported by: WILIAM NEWMAN on 02/11/211551 Last Action: New Order on 02/11/211551 by WILIAM NEWMAN Ferrous Sulfate (Ferrous Sulfate) 325 Mg Tablet, 1 TAB PO QMWF for supplement, #30 Ref 3 (Reported) Entered as Reported by: WILIAM NEWMAN on 02/11/211551 Last Action: New Order on 02/11/211551 by WILIAM NEWMAN Prednisone (Prednisone) 20 Mg Tablet, 30 MG PO DAILY for Crohns flare for 10 Days, #20 30mg PO daily for 10 days, then 20mg daily for 5 days Prescribed by: MALLORY PRINCE MD on 02/13/21 1454 Scheduled PRN Tramadol Hcl (Tramadol Hcl) 50 Mg Tablet, 50 MG PO PRN Q6HRS PRN for PAIN for 6 Days, #20 Prescribed by: MALLORY PRINCE MD on 02/13/21 1455 Justicifation of Admission Dx: Justifications for Admission: Justification of Admission Dx: Yes MALLORY PRINCE MD Feb 13, 2021 15:25
--- NOTE | 2021-02-13 16:57 | NUR ---
Pt discharged home with self care. Discharge instructions and prescriptions discussed. Iv removed. Pt ambulated to main entrance and was secured in car with friend.
[2021-02-14 14:15] LABS: GLIA IGA 5 units (0-19); GLIA IGG 4 units (0-19)
[2021-02-14 16:10] LABS: C ANCA <1:20 titer (Neg:<1:20); P ANCA <1:20 titer (Neg:<1:20)
--- NOTE | 2021-02-16 18:07 | PATHOLOGY ---
[facility] Accession Number: [id number] . 01 Material submitted: . PART A: duodenum - DUODENAL BX R/O CELIAC SPRUE PART B: gastrointestinal site - BX GASTRIC ANTRUM R/O H PYLORI. Modifiers: ANTRUM PART C: colon - ASCENDING COLON BX, COLON ULCERS R/O CROHN'S. Modifiers: ascending PART D: colon - BX TRANSVERSE COLON AND DESCENDING COLON. Modifiers: transverse, descending . 01 Clinical history: . DIARRHEA/ABD PAIN EGD/COLONOSCOPY . 02 Diagnosis: A. Duodenal biopsies: - No significant pathologic abnormalities. . B. Gastric biopsy, antrum: - Chronic gastritis, mild. . C. Colonic mucosa, ascending colon ulcer biopsies: - Active chronic colitis, moderate, with single granuloma, and with segments of acute inflammatory exudate consistent with ulcer. . D. Colonic mucosa, transverse and descending colon biopsies: - Active chronic colitis without granulomas or specific features, mild to moderate, with ulceration. ([facility]; 02/16/2021) [facility] 02/16/2021 1525 Local . 02 Comment: Sections of the duodenal biopsy reveal segments of duodenal and small intestine mucosa. Where best oriented, the mucosal villi show no sprue-like changes or significant inflammatory changes. . Sections of the gastric antral biopsy show mild chronic inflammation. A properly controlled immunoperoxidase stain for Helicobacter is negative for Helicobacter organisms. . Sections of the ascending colon biopsy reveal multiple segments of colonic mucosa showing focal moderate active chronic inflammation with crypt architectural distortion and with a small granuloma identified within the basilar region of the mucosa. There are segments of acute inflammatory exudate consistent with ulcer. . Sections of the transverse and descending colon biopsies reveal multiple segments of colonic mucosa showing focal mild to moderate active chronic inflammation with focal crypt architectural distortion and ulceration. One of the biopsy segments appears relatively normal. . The colon biopsy findings are supportive of the diagnosis of chronic inflammatory bowel disease and are consistent with Crohn's disease. There is no dysplasia or evidence of malignancy. ([facility]; 02/16/2021) . Special stain performed: Immunoperoxidase stain for Helicobacter on B1. . 02 Electronically signed: . Jordan Romero MD, Pathologist NPI- [id number] . 01 Gross description: . A. Received in formalin labeled "Wheatley, Leslye, duodenal BX rule out celiac sprue" are multiple fragments of bone-brown soft tissue measuring in aggregate 1.2 x 0.6 x 0.1 cm. The specimen is submitted entirely in A1. . B. Received in formalin labeled "Wheatley, Leslye, BX gastric antrum rule out H. pylori" is a fragment of bone-brown soft tissue measuring 0.4 x 0.3 x 0.2 cm. The specimen is submitted entirely in B1. . C. Received in formalin labeled "Wheatley, Leslye, ascending colon BX colon ulcers rule out Crohn's" are multiple fragments of bone-brown soft tissue measuring in aggregate 1.0 x 0.5 x 0.1 cm. The specimen is submitted entirely in C1. . D. Received in formalin labeled "Wheatley, Leslye, BX transverse and descending colon" are multiple fragments of bone-brown soft tissue measuring in aggregate 1.0 x 0.3 x 0.1 cm. The specimen is submitted entirely in D1. ([facility]; 02/15/2021) [facility] 02/15/2021 1239 Local . 02 Pathologist provided ICD-10: K29.50, K52.9, R19.7, R10.9 . 02 CPT . 073042, [id number], 703095, [id number], [id number] Specimen Comment: A courtesy copy of this report has been sent to [phone] Specimen Comment: [phone], Specimen Comment: Report sent to ,DR HAZEL / DR HALL Specimen Comment: Report sent to Specimen Comment: A duplicate report has been generated due to demographic updates. Performed at: [address] [place] [id number] MD Aquiles Samuel MD Phone: [phone] Performed at: [address] [facility] [address] [place], [place] [id number] MD Jordan Romero MD Phone: [phone]
== END 2021-02-13 16:59 | disposition home or self-care (01) | DRG 392 ==
LOC: ER 09:30 → 4 NORTH 13:30
PROVIDERS: ADMIT Family Medicine; ATTEND Family Medicine
DX: A09 Infectious gastroenteritis and colitis, unspecified (principal); K50.90 Crohn's disease, unspecified, without complications; Z68.1 Body mass index [BMI] 19.9 or less, adult; Z20.822 Contact with and (suspected) exposure to COVID-19; E83.42 Hypomagnesemia; F14.10 Cocaine abuse, uncomplicated; F17.210 Nicotine dependence, cigarettes, uncomplicated; R63.4 Abnormal weight loss; N20.0 Calculus of kidney; Z82.5 Family history of asthma and other chronic lower respiratory diseases; Z88.5 Allergy status to narcotic agent; Z88.0 Allergy status to penicillin; Z88.2 Allergy status to sulfonamides; Z91.040 Latex allergy status
CPT/HCPCS: 36415; 43239; 45378; 74177; 80053; 80307; 81001; 81025; 83516; 83631; 83690; 83735; 85007; 85025; 85651; 86140; 86256; 87040; 87426; 87505; 88305; 88342; 96372; J0744; J1170; J1650; J1885; J2704; J2920; J3010; J3475; J3490; J7030; J7120; J7512; Q9966; Q9967; U0003; U0005; 99285-25; G0378

== ENCOUNTER → 2021-02-22 | Outpatient (CLI) | payer MEDICAID ==
[2021-02-13 15:00] VITALS: BP 106/73
[~2021-02-22] MED LIST changes: +DICY10CA3 PO; +ERGO500089 PO; +FERR325T14 PO; +TRAM50TA PO
== END ==
LOC: LAB 12:00
PROVIDERS: ATTEND Internal Medicine
DX: K50.80 Crohn's disease of both small and large intestine without complications (principal)
CPT/HCPCS: 86481; 86704; 86706; 87340